=== PATIENT | female | born 1940 | race Caucasian/White ===

== ENCOUNTER 2021-09-16 13:58 | Outpatient (RCR) | payer MEDICARE, OTHER, SELFPAY ==
--- OUTSIDE RECORDS SUMMARY | 2021-09-11 09:07 | XMS_ITS | Continuity of Care Document ---
:1940 Author Care Team Providers Name Role Phone MD Ryan F Attending Physician MD Ryan F Primary Care Physician Allergies, Adverse Reactions, Alerts No known allergies Social History Smoking Status Unknown if ever smoked Additional Data Assigned Sex Female Medications Medication Status Dose Units Route Directions Qty Days Start End Ins tructions Date Date Acetaminophen Active 325-65 MG PO Every 4 100 0 Hours as needed Amlodipine Active 5 MG PO Daily 30 Besylate Apixaban Active 5 MG PO Twice A Day 60 (Eliquis) 5 Mg TAB Digoxin Active 125 MCG PO Daily 90 Furosemide Active 20 MG PO Daily 30 Gabapentin Active 300 MG PO Daily 90 Oxybutynin Active 10 MG PO Daily 30 Chloride (Oxybutynin Chloride Er) 10 Mg TAB Potassium Active 20 MEQ PO Daily 30 Chloride Simvastatin Active 20 MG PO Bedtime 30 Procedures Procedure Date Performed Status ASSAY OF MAGNESIUM August 18, 2021 completed ASSAY OF PHOSPHORUS August 18, 2021 completed METABOLIC PANEL TOTAL CA August 18, 2021 completed Relevant Diagnostic Tests and/or Laboratory Data Laboratory Results Test Date/Time Result Interpretation Reference Result Perfo rming Range Comment Site Random September 08, 122 60-115 [facility] Glucose 2021 11:32am 1999 No [facility] [address] Blood Urea September 08, 17 7-30 [facility] Nitrogen 2021 11:32am 1999 No [facility] [address] Creatinine September 08, 0.9 0.5-1.5 [facility] 2021 11:32am 1999 No [facility] [address] Estimated September 08, Patient [facility] Creatinine 2021 11:32am height/weig 1999 [facility] Clearance ht data not [facility] [id number] available Sodium Level September 08, 137 135-149 [facility] 2021 11:32am [facility] [address] Potassium September 08, 3.9 3.6-5.1 [facility] Level 2021 11:32am 1999 [facility] [address] Chloride September 08, 100 96-114 [facility] Level 2021 11:32am 1999 [facility] [address] Carbon September 08, 26 20-32 [facility] Dioxide Level 2021 11:32am 200 0 [facility] [address] Calcium Level September 08, 8.9 8.4-10.6 [facility] 2021 11:32am 1999 [facility] [address] Phosphorus August 18, 5.1 2.5-4.5 [facility] Level 2021 9:15am 1999 [facility] [address] Magnesium August 18, 1.6 1.5-2.6 [facility] Level 2021 9:15am 1999 [facility] [id number] Insurance Providers Guarantor Madie Morocho Address [address] [place] [address] [address] [place] [id number] Contact Info. Home Phone: Payer Policy Id Coverage Id Subscriber's Subscriber Id Effective E xpiration Name Date Date Medicare [id number] Madie Morocho Encounters Encounter Location(s) Arrival/Admit Date Discharge/Depart Date Provider(s) Registered [place] September 08, 2021 Edil Davis [facility] 12:05pm Buddy CASTILLO Registered [place] August 18, 2021 Ignacio [facility] 3:29pm Milagros Gonzalez DNP RN Plan of Treatment Future Tests Future scheduled test information is unavailable Pending Tests Pending diagnostic test information is unavailable Future Visits Future appointment information is unavailable Referrals to Other Providers Referral information is unavailable Future Procedures Future procedure information is unavailable Future Medications Future medication information is unavailable Patient Instructions Denosumab (By injection) (Prolia, Xgeva)
--- NOTE | 2021-09-14 16:20 | URNOTE ---
07/23/2021 note by Lexi Rodriguez: Request received from [facility] for prior authorization of Prolia [id number]. Patient carries Medicare as primary insurance. Per [email or web address] LCD [id number] no prior authorization is required for Prolia. Services are based on medical necessity and follows Medicare guidelines.
[2021-09-16 14:23] VITALS: BP 119/68; PULSE 58; RESP 95; TEMP 36.2; O2SAT 95
[2021-09-16] MEDS: DENOSUMAB 60 MG/ML SYRINGE SUBCUT (14:38)
== END 2021-09-17 23:59 | disposition home or self-care (01) ==
LOC: CCIC 13:58
PROVIDERS: PCP Nurse Practitioner Gerontology; Visit Provider Clinical Nurse Specialist
DX: M81.0 Age-related osteoporosis without current pathological fracture (principal)
CPT/HCPCS: 96374; J0897

== ENCOUNTER 2021-09-17 10:37 | Outpatient (CLI) | payer MEDICARE, OTHER, SELFPAY ==
--- NOTE | 2021-09-17 11:00 | CRLHL7_ITS ---
For Patients: As a result of the 21st Century Cures Act, medical imaging exams and procedure reports are released immediately into your electronic medical record. You may view this report before your referring provider. If you have questions, please contact your health care provider. Indication: Pulmonary nodule Technique: Noncontrast CT chest Comparison: CT chest 08/21/2020 Findings: Normal caliber thoracic aorta. Heart is mildly enlarged. Coronary artery calcification. No pericardial effusion. Calcified left hilar lymph nodes and mediastinal nodes. No pleural effusion. Mild emphysema. 3 millimeter subpleural left lower lobe pulmonary nodule series 3, image 57, unchanged. Right middle lobe lingular strandy atelectasis/scarring not significantly changed. No new nodules are seen. Left upper lobe granuloma. Right lower lobe bronchiectasis. Splenic granulomas. Low-attenuation lesion left kidney incompletely assessed cholecystectomy. No suspicious bony lesions. Impression: 1. 3 millimeter left lower lobe pulmonary nodule unchanged. No new nodules are seen. 2. Emphysema. [employer] GUID[employer]INES - SOLID NODULES: SINGLE LOW RISK - nodule less than 6 mm: No routine follow-up. - nodule 6-8 mm: CT at 6-12 months, then consider CT at 18-24 months. - nodule greater than 8 mm: Consider CT at 3 months, PET/CT or tissue sampling. SINGLE HIGH RISK - nodule less than 6 mm: Optional CT at 12 months. - nodule 6-8 mm: CT at 6-12 months, then CT at 18-24 months. - nodule greater than 8 mm: Consider CT at 3 months, PET/CT or tissue sampling. MULTIPLE LOW RISK - nodule less than 6 mm: No routine follow-up. - nodule 6-8 mm: CT at 3-6 months, then consider CT at 18-24 months. - nodule greater than 8 mm: CT at 3-6 months, then consider CT at 18-24 months. MULTIPLE HIGH RISK - nodule less than 6 mm: Optional CT at 12 months. - nodule 6-8 mm: CT at 3-6 months, then at 18-24 months. - nodule greater than 8 mm: CT at 3-6 months, then at 18-24 months. Please note that all CT scans at this facility use dose modulation, iterative reconstruction, and/or weight-based dosing when appropriate to reduce radiation dose to as low as reasonably achievable. Dictated by Krista Pritchett MD @ 09/17/2021 12:41:08 PM (Electronically Signed)
== END 2021-09-17 10:38 | disposition home or self-care (01) ==
PROVIDERS: PCP Nurse Practitioner Gerontology; Visit Provider Family Medicine
DX: R91.1 Solitary pulmonary nodule (principal); J43.9 Emphysema, unspecified
CPT/HCPCS: 71250

== ENCOUNTER 2021-09-23 19:05 | Outpatient (CLI) | payer MEDICARE, OTHER, SELFPAY | END 2021-09-23 19:06 | disposition home or self-care (01) | LOC: AMB 10-01 12:38 | PROVIDERS: PCP Family Medicine; Visit Provider Family Medicine | DX: R53.81 Other malaise (principal) | CPT/HCPCS: A0425; A0427 ==

== ENCOUNTER 2021-09-23 19:22 | Inpatient (IN) | payer MEDICARE, OTHER, SELFPAY ==
[2021-09-23 19:29] VITALS: BP 114/91; PULSE 66; RESP 18; TEMP 36.1; O2SAT 95; BMI 27.9
--- NOTE | 2021-09-23 19:54 | ED.GENADULT ---
HPI - General Adult General Time Seen by Provider: 19:55 Date Seen: 09/23/21 Chief complaint: Dizziness/Vertigo Stated complaint: LOW HEMOGLOBIN Time Seen by Provider: 09/23/21 19:53 Source: patient and family History of Present Illness HPI narrative: Carlita Santos is a 72-year-old female past medical history includes COPD, osteoporosis, pulmonary embolism not on anticoagulant, hyperlipidemia presents emerged department by EMS with a low hemoglobin. According to patient and family, she was recently moved into an assisted living apartment, over the last month she is declining mobility. She does use a walker, the last few days she has had increased confusion and weakness, she was seen in clinic, urinalysis was obtained as well as some blood work, hemoglobin came back low at 5.5. Testing her for UTI, short-term memory issues. She was notified and brought to the emergency department. Patient denies any, headache, shortness of breath or chest pain, she does look more pale over the last few days. She denies any in the urine or blood in the stool. No history of any malignancy. Related Data Home Medications Medication Instructions Recorded Confirmed acetaminophen 325 mg tablet 325 mg PO Q4-6H PRN 09/14/21 09/14/21 amlodipine 5 mg tablet 5 mg PO DAILY 09/14/21 09/23/21 apixaban 5 mg tablet (Eliquis) 5 mg PO BID 09/14/21 09/23/21 digoxin 125 mcg (0.125 mg) tablet 125 mcg PO DAILY 09/14/21 09/23/21 furosemide 20 mg tablet 20 mg PO DAILY 09/14/21 09/23/21 gabapentin 300 mg capsule 300 mg PO DAILY 09/14/21 09/23/21 oxybutynin chloride 10 mg 10 mg PO DAILY 09/14/21 09/23/21 tablet,extended release 24 hr potassium chloride 20 mEq 20 meq PO DAILY 09/14/21 09/23/21 tablet,extended release(part/cryst) simvastatin 20 mg tablet 20 mg PO HS 09/14/21 09/23/21 Allergies Allergy/AdvReac Type Severity Reaction Status Date / Time No Known Drug Allergies Allergy Verified 09/16/21 14:34 Review of Systems Status of ROS: Reports: 10 or more systems reviewed and unremarkable except as noted in History and below [facility] Medical History (Updated 09/23/21 @ 20:01 by Shandra Malhotra RN) Age related osteoporosis Alcohol dependence in remission Emphysema lung Essential (primary) hypertension Fracture of shaft of right fibula Heart failure, unspecified Hyperlipidemia Major depressive disorder Nonrheumatic mitral (valve) insufficiency Nonrheumatic tricuspid (valve) insufficiency Osteoarthritis Personal history of pulmonary embolism Polyneuropathy Pulmonary embolism without acute cor pulmonale Weakness Social History Smoking Status: Never smoker How often do you have a drink containing alcohol: never AUDIT-C Alcohol total score: 0 Non-prescribed substance use: denies use Exam Const: Vital Signs, click to edit/add: Vital Signs - 24 hr 09/23/21 19:29 09/23/21 20:36 Temperature 97.0 F L Pulse Rate [Left B rachial] 66 65 Respiratory Rate 18 14 Blood Pressure [Ri ght Upper Arm] 114/91 H 126/62 Pulse Oximetry 95 90 Common normals: no apparent distress and oriented x3 General appearance: cooperative, comfortable and well developed Orientation/consciousness: Yes awake, Yes oriented to person, Yes oriented to place and Yes oriented to time HENMT: Common normals: normocephalic and TM's normal bilaterally Head and scalp: normal to inspection and normocephalic Face and sinus: normal facial exam Tympanic membrane: TM's normal bilaterally Mouth: oral and palatal mucosa normal Eye: Common normals: PERRL, EOMs intact bilaterally and conjunctivae normal General eye: normal appearance of both eyes Visual acuity: acuity normal Alignment: alignment normal Conjunctiva: conjunctiva(e) normal Pupil: PERRL Neck & C-Spine: Common normals: full ROM, no lymphadenopathy and supple Lymph: Lymphatic: no lymphadenopathy noted Chest: Common normals: inspection of chest normal Resp: Common normals: normal respiratory effort and clear to auscultation bilaterally Auscultation: clear to auscultation bilaterally Cardio: Common normals: regular rate, regular rhythm, S1 normal heart sound and S2 normal heart sound Rate: regular rate Rhythm: regular rhythm Heart sounds: S1 normal and S2 normal GI: Common normals: Normal to inspection, nondistended, normoactive bowel sounds present and soft to palpation Palpation: soft : Other: Normal rectal exam: no gross blood per rectum. No hemorrhoids. Back & Pelvis: Common normals: no thoracic nor lumbar tenderness Extremity: Common normals: normal to inspection, full ROM and normal capillary refill Neuro: Common normals: oriented x3 and CN's II-XII intact bilaterally Sensorium/orientation: awake, oriented to person, oriented to place and oriented to time Other: Baseline according to family. Skin: Narrative: Pale in appearance. Course Course Hospital Course: 8:00 PM: AIDET performed. vitals are stable. Workup will include IV propofol, 125 cc/hr maintenance fluid, will obtain type and screen, CBC, CMP, urinalysis, sars-Cov-2 PCR and Hemoccult. Patient and family were in agreement this plan, likely admit for blood transfusion and further evaluation workup. Reevaluation(s) Reevaluation #1: Hemoccult negative. Patient family updated on hemoglobin results, hemoglobin 6.2 differential looks like iron deficiency, no signs of active bleeding, vitals are stable, plan to order 1 RBC unit to give prior to admission, metabolic panel within normal limits. Time: 20:20 Reevaluation #2: Call made to Dr. Wells, Hospitalist dental receptionist, she accepts care of the patient to a [facility] surgery bed, patient and family in agreement. Time: 21:05 Vital Signs Vital signs: Initial Vital Signs Temperature 97.0 F L 09/23/21 19:29 Temperature Source Temporal Artery Scan 09/23/21 19:29 Pulse Rate 66 09/23/21 19:29 Pulse Rhythm 09/23/21 19:29 Pulse Strength 3+ Normal 09/23/21 19:29 Respiratory Rate 18 09/23/21 19:29 Blood Pressure 114/91 H 09/23/21 19:29 Blood Pressure Mean 98 09/23/21 19:29 Blood Pressure Position Sitting 09/23/21 19:29 Pulse Oximetry 95 09/23/21 19:29 Oxygen Delivery Method 09/23/21 19:29 Vital Signs Temperature 97.0 F L 09/23/21 19:29 Pulse Rate 66 09/23/21 19:29 Respiratory Rate 18 09/23/21 19:29 Blood Pressure 114/91 H 09/23/21 19:29 Pulse Oximetry 95 09/23/21 19:29 Temperature 97.0 F L 09/23/21 19:29 Pulse Rate 65 09/23/21 20:36 Respiratory Rate 14 09/23/21 20:36 Blood Pressure 126/62 09/23/21 20:36 Pulse Oximetry 90 09/23/21 20:36 Medical Decision Making Lab Data Labs: Lab Results 09/23/21 09/23/21 Range/Units 20:25 20:25 WBC 9.70 (4.50-11.00) K/uL RBC 3.15 L (4.00-5.20) m/uL Hgb 6.2 L* (12.0-16.0) gm/dL Hct 23.6 L (33.0-51.0) % MCV 75 L (80-100) fL MCH 20 L (26-34) pg MCHC 26 L (32-36) gm/dL RDW Coeff of Anaya 28.2 H (11.5-15.5) % Plt Count 597 H (140-440) K/uL Neut % (Auto) 81.3 H (42.0-72.0) % Lymph % (Auto) 10.5 L (20-44) % Mathews % (Auto) 6.6 (0.0-11.0) % Eos % (Auto) 0.9 (0.0-7.0) % Baso % (Auto) 0.4 (0.0-3.0) % Neut # (Auto) 7.90 H (1.7-7.0) K/uL Lymph # (Auto) 1.00 (0.90-2.90) K/uL Mathews # (Auto) 0.60 (0.00-0.90) K/UL Eos # (Auto) 0.09 (0.00-0.50) K/uL Baso # (Auto) 0.04 (0.00-0.30) K/uL Abs Immat Gran (auto) 0.03 (0.00-0.30) K/uL Sodium 135 (135-149) mmol/L Potassium 3.5 L (3.6-5.1) mmol/L Chloride 103 (96-114) mmol/L Carbon Dioxide 23 (20-32) mmol/L BUN 22 (7-30) mg/dL Creatinine 0.8 (0.5-1.5) mg/dL Estimated Creat Clear 45.09 Glucose 122 H (60-115) mg/dL Calcium 7.2 L (8.4-10.6) mg/dL Total Bilirubin 0.8 (0.1-1.5) mg/dL AST 26 (12-35) U/L ALT 11 (4-35) U/L Alkaline Phosphatase 90 (40-150) U/L Total Protein 5.8 L (6.0-8.3) g/dL Albumin 3.3 (3.3-5.0) g/dL Discharge Plan Discharge Prescriptions: No Action acetaminophen 325 mg tablet 325 mg PO Q4-6H PRN0RF Rx Instructions: 325-650mg po q4-6 hrs prn amlodipine 5 mg tablet 5 mg PO DAILY 0RF Eliquis 5 mg tablet 5 mg PO BID 0RF digoxin 125 mcg (0.125 mg) tablet 125 mcg PO DAILY 0RF furosemide 20 mg tablet 20 mg PO DAILY 0RF gabapentin 300 mg capsule 300 mg PO DAILY 0RF oxybutynin chloride 10 mg tablet extended release 24 hr 10 mg PO DAILY 0RF potassium chloride 20 mEq tablet,ER particles/crystals 20 meq PO DAILY 0RF simvastatin 20 mg tablet 20 mg PO HS 0RF Follow Up/Referrals: Macho Davis MD [Primary Care Provider] -
[2021-09-23] MEDS: 0.9 % SODIUM CHLORIDE 1000 ml 1,000 ML 125 ML IV (20:29)
[2021-09-23 20:34] LABS: Basophils Absolute Auto 0.04 K/uL (0.00-0.30); Basophils Percent Auto 0.4 % (0.0-3.0); Eosinophils Absolute Auto 0.09 K/uL (0.00-0.50); Eosinophils Percent Auto 0.9 % (0.0-7.0); Hematocrit 23.6 % (33.0-51.0); Immature Granulocytes Abs Auto 0.03 K/uL (0.00-0.30); Lymphocytes Percent Auto 10.5 % (20-44); Mean Corpuscular HGB Conc 26 gm/dL (32-36); Mean Corpuscular Hemoglobin 20 pg (26-34); Mean Corpuscular Volume 75 fL (80-100); Monocytes Percent Auto 6.6 % (0.0-11.0); Neutrophils Percent Auto 81.3 % (42.0-72.0); Platelet Count* 597 K/uL (140-440); RDW Coefficient of Variation % 28.2 % (11.5-15.5); Red Blood Count 3.15 m/uL (4.00-5.20)
[2021-09-23 20:36] VITALS: BP 126/62; PULSE 65; RESP 14; O2SAT 90
--- NOTE | 2021-09-23 20:39 | ED.NURSE ---
critical lab: hemoglobin 6.2. notified.
[2021-09-23 20:40] LABS: Hemoglobin* 6.2 gm/dL (12.0-16.0)
[2021-09-23 20:49] LABS: Albumin* 3.3 g/dL (3.3-5.0); Chloride* 103 mmol/L (96-114); Potassium* 3.5 mmol/L (3.6-5.1); Sodium* 135 mmol/L (135-149)
[2021-09-23 20:51] LABS: Creatinine* 0.8 mg/dL (0.5-1.5); Est. Creatinine Clearance* 45.09; Estimated Glomerular Filt Rate 75.37
[2021-09-23 20:52] LABS: Alanine Aminotransferase* 11 U/L (4-35); Alkaline Phosphatase* 90 U/L (40-150); Aspartate Amino Transferase* 26 U/L (12-35); Bilirubin Total* 0.8 mg/dL (0.1-1.5); Blood Urea Nitrogen* 22 mg/dL (7-30); Carbon Dioxide* 23 mmol/L (20-32); Glucose* 122 mg/dL (60-115); Total Protein* 5.8 g/dL (6.0-8.3)
[2021-09-23 20:53] LABS: Calcium* 7.2 mg/dL (8.4-10.6)
[2021-09-23 21:00] VITALS: BP 132/57; PULSE 66; RESP 18; O2SAT 98
--- NOTE | 2021-09-23 21:06 | ED.NURSE ---
VSS at this time. Endorses some dizziness, HOB adjusted and lights dimmed. Denies further needs at this time. Call light within reach. Report given to ARCHIE rCews.
--- NOTE | 2021-09-23 21:10 | ED.GENADULT ---
HPI - General Adult General Chief complaint: Dizziness/Vertigo Stated complaint: LOW HEMOGLOBIN Time Seen by Provider: 09/23/21 19:53 Source: patient and family Related Data Home Medications Medication Instructions Recorded Confirmed acetaminophen 325 mg tablet 325 mg PO Q4-6H PRN 09/14/21 09/14/21 amlodipine 5 mg tablet 5 mg PO DAILY 09/14/21 09/23/21 apixaban 5 mg tablet (Eliquis) 5 mg PO BID 09/14/21 09/23/21 digoxin 125 mcg (0.125 mg) tablet 125 mcg PO DAILY 09/14/21 09/23/21 furosemide 20 mg tablet 20 mg PO DAILY 09/14/21 09/23/21 gabapentin 300 mg capsule 300 mg PO DAILY 09/14/21 09/23/21 oxybutynin chloride 10 mg 10 mg PO DAILY 09/14/21 09/23/21 tablet,extended release 24 hr potassium chloride 20 mEq 20 meq PO DAILY 09/14/21 09/23/21 tablet,extended release(part/cryst) simvastatin 20 mg tablet 20 mg PO HS 09/14/21 09/23/21 Allergies Allergy/AdvReac Type Severity Reaction Status Date / Time No Known Drug Allergies Allergy Verified 09/16/21 14:34 [facility] Medical History (Updated 09/23/21 @ 20:01 by Shandra Malhotra RN) Age related osteoporosis Alcohol dependence in remission Emphysema lung Essential (primary) hypertension Fracture of shaft of right fibula Heart failure, unspecified Hyperlipidemia Major depressive disorder Nonrheumatic mitral (valve) insufficiency Nonrheumatic tricuspid (valve) insufficiency Osteoarthritis Personal history of pulmonary embolism Polyneuropathy Pulmonary embolism without acute cor pulmonale Weakness Social History Smoking Status: Never smoker How often do you have a drink containing alcohol: never AUDIT-C Alcohol total score: 0 Non-prescribed substance use: denies use Exam Const: Vital Signs, click to edit/add: Vital Signs - 24 hr 09/23/21 19:29 09/23/21 20:36 Temperature 97.0 F L Pulse Rate [Left B rachial] 66 65 Respiratory Rate 18 14 Blood Pressure [Ri ght Upper Arm] 114/91 H 126/62 Pulse Oximetry 95 90 Course Course Hospital Course: 8:00 PM: AIDET performed. vitals are stable. Workup will include IV propofol, 125 cc/hr maintenance fluid, will obtain type and screen, CBC, CMP, urinalysis, sars-Cov-2 PCR and Hemoccult. Patient and family were in agreement this plan, likely admit for blood transfusion and further evaluation workup. Vital Signs Vital signs: Initial Vital Signs Temperature 97.0 F L 09/23/21 19:29 Temperature Source Temporal Artery Scan 09/23/21 19:29 Pulse Rate 66 09/23/21 19:29 Pulse Rhythm 09/23/21 19:29 Pulse Strength 3+ Normal 09/23/21 19:29 Respiratory Rate 18 09/23/21 19:29 Blood Pressure 114/91 H 09/23/21 19:29 Blood Pressure Mean 98 09/23/21 19:29 Blood Pressure Position Sitting 09/23/21 19:29 Pulse Oximetry 95 09/23/21 19:29 Oxygen Delivery Method 09/23/21 19:29 Vital Signs Temperature 97.0 F L 09/23/21 19:29 Pulse Rate 66 09/23/21 19:29 Respiratory Rate 18 09/23/21 19:29 Blood Pressure 114/91 H 09/23/21 19:29 Pulse Oximetry 95 09/23/21 19:29 Temperature 97.0 F L 09/23/21 19:29 Pulse Rate 65 09/23/21 20:36 Respiratory Rate 14 09/23/21 20:36 Blood Pressure 126/62 09/23/21 20:36 Pulse Oximetry 90 09/23/21 20:36 Medical Decision Making Lab Data Labs: Lab Results 09/23/21 09/23/21 Range/Units 20:25 20:25 WBC 9.70 (4.50-11.00) K/uL RBC 3.15 L (4.00-5.20) m/uL Hgb 6.2 L* (12.0-16.0) gm/dL Hct 23.6 L (33.0-51.0) % MCV 75 L (80-100) fL MCH 20 L (26-34) pg MCHC 26 L (32-36) gm/dL RDW Coeff of Anaya 28.2 H (11.5-15.5) % Plt Count 597 H (140-440) K/uL Neut % (Auto) 81.3 H (42.0-72.0) % Lymph % (Auto) 10.5 L (20-44) % Frontier % (Auto) 6.6 (0.0-11.0) % Eos % (Auto) 0.9 (0.0-7.0) % Baso % (Auto) 0.4 (0.0-3.0) % Neut # (Auto) 7.90 H (1.7-7.0) K/uL Lymph # (Auto) 1.00 (0.90-2.90) K/uL Frontier # (Auto) 0.60 (0.00-0.90) K/UL Eos # (Auto) 0.09 (0.00-0.50) K/uL Baso # (Auto) 0.04 (0.00-0.30) K/uL Abs Immat Gran (auto) 0.03 (0.00-0.30) K/uL Sodium 135 (135-149) mmol/L Potassium 3.5 L (3.6-5.1) mmol/L Chloride 103 (96-114) mmol/L Carbon Dioxide 23 (20-32) mmol/L BUN 22 (7-30) mg/dL Creatinine 0.8 (0.5-1.5) mg/dL Estimated Creat Clear 45.09 Glucose 122 H (60-115) mg/dL Calcium 7.2 L (8.4-10.6) mg/dL Total Bilirubin 0.8 (0.1-1.5) mg/dL AST 26 (12-35) U/L ALT 11 (4-35) U/L Alkaline Phosphatase 90 (40-150) U/L Total Protein 5.8 L (6.0-8.3) g/dL Albumin 3.3 (3.3-5.0) g/dL Discharge Plan Discharge Prescriptions: No Action acetaminophen 325 mg tablet 325 mg PO Q4-6H PRN0RF Rx Instructions: 325-650mg po q4-6 hrs prn amlodipine 5 mg tablet 5 mg PO DAILY 0RF Eliquis 5 mg tablet 5 mg PO BID 0RF digoxin 125 mcg (0.125 mg) tablet 125 mcg PO DAILY 0RF furosemide 20 mg tablet 20 mg PO DAILY 0RF gabapentin 300 mg capsule 300 mg PO DAILY 0RF oxybutynin chloride 10 mg tablet extended release 24 hr 10 mg PO DAILY 0RF potassium chloride 20 mEq tablet,ER particles/crystals 20 meq PO DAILY 0RF simvastatin 20 mg tablet 20 mg PO HS 0RF Follow Up/Referrals: Macho Davis MD [Primary Care Provider] -
--- NOTE | 2021-09-23 21:14 | ED.GENADULT ---
HPI - General Adult General Chief complaint: Dizziness/Vertigo Stated complaint: LOW HEMOGLOBIN Time Seen by Provider: 09/23/21 19:53 Source: patient and family Related Data Home Medications Medication Instructions Recorded Confirmed acetaminophen 325 mg tablet 325 - 650 mg PO Q4-6H PRN 09/14/21 09/24/21 amlodipine 5 mg tablet 5 mg PO DAILY 09/14/21 09/23/21 apixaban 5 mg tablet (Eliquis) 5 mg PO BID 09/14/21 09/23/21 digoxin 125 mcg (0.125 mg) tablet 125 mcg PO DAILY 09/14/21 09/23/21 furosemide 20 mg tablet 20 mg PO DAILY 09/14/21 09/23/21 gabapentin 300 mg capsule 300 mg PO BID 09/14/21 09/24/21 potassium chloride 20 mEq 20 meq PO DAILY 09/14/21 09/23/21 tablet,extended release(part/cryst) simvastatin 20 mg tablet 20 mg PO HS 09/14/21 09/23/21 oxybutynin chloride 15 mg 15 mg PO DAILY 09/24/21 09/24/21 tablet,extended release 24 hr Allergies Allergy/AdvReac Type Severity Reaction Status Date / Time No Known Drug Allergies Allergy Verified 09/16/21 14:34 [facility] Medical History (Updated 10/21/21 @ 09:52 by VITALIY Jameson) Age related osteoporosis Alcohol dependence in remission Congestive heart failure Emphysema lung Essential (primary) hypertension Fracture of shaft of right fibula Heart failure, unspecified Hyperlipidemia Iron deficiency anemia Major depressive disorder Nonrheumatic mitral (valve) insufficiency Nonrheumatic tricuspid (valve) insufficiency Osteoarthritis Personal history of pulmonary embolism POLST (Physician Orders for Life-Sustaining Treatment) Polyneuropathy Pulmonary embolism without acute cor pulmonale Social History (Updated 09/24/21 @ 17:05 by Abigail Matos MD) Narrative: Patient lives in assisted living in [facility]. She does not smoke or drink alcohol. She has a daughter who lives nearby and is involved in her care. Highest level of school completed/degree received: some college, no degree Smoking Status: Former smoker Do you use any of these nicotine containing products: None Second hand tobacco smoke exposure: No How often do you have a drink containing alcohol: never AUDIT-C Alcohol total score: 0 Non-prescribed substance use: denies use Caffeine: Yes (coffee(x1) and ice tea(x3) daily) service: No Exam Const: Vital Signs, click to edit/add: Vital Signs - 24 hr 09/23/21 19:29 09/23/21 20:36 Temperature 97.0 F L Pulse Rate [Left B rachial] 66 65 Respiratory Rate 18 14 Blood Pressure [Ri ght Upper Arm] 114/91 H 126/62 Pulse Oximetry 95 90 Course Course Hospital Course: 8:00 PM: AIDET performed. vitals are stable. Workup will include IV propofol, 125 cc/hr maintenance fluid, will obtain type and screen, CBC, CMP, urinalysis, sars-Cov-2 PCR and Hemoccult. Patient and family were in agreement this plan, likely admit for blood transfusion and further evaluation workup. Vital Signs Vital signs: Initial Vital Signs Temperature 97.0 F L 09/23/21 19:29 Temperature Source Temporal Artery Scan 09/23/21 19:29 Pulse Rate 66 09/23/21 19:29 Pulse Rhythm 09/23/21 19:29 Pulse Strength 3+ Normal 09/23/21 19:29 Respiratory Rate 18 09/23/21 19:29 Blood Pressure 114/91 H 09/23/21 19:29 Blood Pressure Mean 98 09/23/21 19:29 Blood Pressure Position Sitting 09/23/21 19:29 Pulse Oximetry 95 09/23/21 19:29 Oxygen Delivery Method 09/23/21 19:29 Vital Signs Temperature 97.0 F L 09/23/21 19:29 Pulse Rate 66 09/23/21 19:29 Respiratory Rate 18 09/23/21 19:29 Blood Pressure 114/91 H 09/23/21 19:29 Pulse Oximetry 95 09/23/21 19:29 Oxygen Delivery Method 09/23/21 19:29 Temperature 96.9 F L 09/25/21 12:15 Pulse Rate 59 L 09/25/21 13:00 Respiratory Rate 18 09/25/21 13:00 Blood Pressure 145/74 H 09/25/21 13:00 Pulse Oximetry 94 09/25/21 13:00 Oxygen Delivery Method 09/25/21 13:00 Oxygen Flow Rate 1 09/24/21 07:43 Medical Decision Making Lab Data Labs: Lab Results 09/23/21 09/23/21 09/23/21 Range/Units 20:24 20:25 20:25 WBC 9.70 (4.50-11.00) K/uL RBC 3.15 L (4.00-5.20) m/uL Hgb 6.2 L* (12.0-16.0) gm/dL Hct 23.6 L (33.0-51.0) % MCV 75 L (80-100) fL MCH 20 L (26-34) pg MCHC 26 L (32-36) gm/dL RDW Coeff of Anaya 28.2 H (11.5-15.5) % Plt Count 597 H (140-440) K/uL Neut % (Auto) 81.3 H (42.0-72.0) % Lymph % (Auto) 10.5 L (20-44) % Harding % (Auto) 6.6 (0.0-11.0) % Eos % (Auto) 0.9 (0.0-7.0) % Baso % (Auto) 0.4 (0.0-3.0) % Neut # (Auto) 7.90 H (1.7-7.0) K/uL Lymph # (Auto) 1.00 (0.90-2.90) K/uL Harding # (Auto) 0.60 (0.00-0.90) K/UL Eos # (Auto) 0.09 (0.00-0.50) K/uL Baso # (Auto) 0.04 (0.00-0.30) K/uL Abs Immat Gran (auto) 0.03 (0.00-0.30) K/uL Sodium 135 (135-149) mmol/L Potassium 3.5 L (3.6-5.1) mmol/L Chloride 103 (96-114) mmol/L Carbon Dioxide 23 (20-32) mmol/L BUN 22 (7-30) mg/dL Creatinine 0.8 (0.5-1.5) mg/dL Estimated Creat Clear 45.09 Glucose 122 H (60-115) mg/dL Haptoglobin (30-200) mg/dL Calcium 7.2 L (8.4-10.6) mg/dL Iron (37-170) ug/dL TIBC (265-497) ug/dL % Saturation (20-50) % [id number], Serum (200-360) mg/dL Total Bilirubin 0.8 (0.1-1.5) mg/dL Direct Bilirubin (0.0-0.5) mg/dL AST 26 (12-35) U/L ALT 11 (4-35) U/L Alkaline Phosphatase 90 (40-150) U/L Lactate Dehydrogenase (313-618) U/L Total Protein 5.8 L (6.0-8.3) g/dL Albumin 3.3 (3.3-5.0) g/dL TSH (0.270-4.20) uIU/mL SARS-CoV-2 (PCR) Negative SARS-CoV-2 (Negative) Blood Type Antibody Screen Crossmatch ([facility]) 09/23/21 09/23/21 09/23/21 Range/Units 20:25 20:25 20:25 WBC (4.50-11.00) K/uL RBC (4.00-5.20) m/uL Hgb (12.0-16.0) gm/dL Hct (33.0-51.0) % MCV (80-100) fL MCH (26-34) pg MCHC (32-36) gm/dL RDW Coeff of Anaya (11.5-15.5) % Plt Count (140-440) K/uL Neut % (Auto) (42.0-72.0) % Lymph % (Auto) (20-44) % Harding % (Auto) (0.0-11.0) % Eos % (Auto) (0.0-7.0) % Baso % (Auto) (0.0-3.0) % Neut # (Auto) (1.7-7.0) K/uL Lymph # (Auto) (0.90-2.90) K/uL Harding # (Auto) (0.00-0.90) K/UL Eos # (Auto) (0.00-0.50) K/uL Baso # (Auto) (0.00-0.30) K/uL Abs Immat Gran (auto) (0.00-0.30) K/uL Sodium (135-149) mmol/L Potassium (3.6-5.1) mmol/L Chloride (96-114) mmol/L Carbon Dioxide (20-32) mmol/L BUN (7-30) mg/dL Creatinine (0.5-1.5) mg/dL Estimated Creat Clear Glucose (60-115) mg/dL Haptoglobin (30-200) mg/dL Calcium (8.4-10.6) mg/dL Iron 17 L (37-170) ug/dL TIBC 430 (265-497) ug/dL % Saturation 4 L (20-50) % Pokn-4-Aelmtrlhztr, Serum (200-360) mg/dL Total Bilirubin 0.7 (0.1-1.5) mg/dL Direct Bilirubin 0.4 (0.0-0.5) mg/dL AST 49 H (12-35) U/L ALT 11 (4-35) U/L Alkaline Phosphatase 89 (40-150) U/L Lactate Dehydrogenase 763 H (313-618) U/L Total Protein 5.8 L (6.0-8.3) g/dL Albumin 3.3 (3.3-5.0) g/dL TSH (0.270-4.20) uIU/mL SARS-CoV-2 (PCR) (Negative) Blood Type A Positive Antibody Screen NEGATIVE Crossmatch ([facility]) See Detail 09/23/21 09/23/21 09/24/21 Range/Units 20:25 20:25 06:19 WBC 7.74 (4.50-11.00) K/uL RBC 3.74 L (4.00-5.20) m/uL Hgb 8.1 L (12.0-16.0) gm/dL Hct 29.0 L (33.0-51.0) % MCV 78 L (80-100) fL MCH 22 L (26-34) pg MCHC 28 L (32-36) gm/dL RDW Coeff of Anaya 25.6 H (11.5-15.5) % Plt Count 604 H (140-440) K/uL Neut % (Auto) 79.0 H (42.0-72.0) % Lymph % (Auto) 11.0 L (20-44) % Harding % (Auto) 6.8 (0.0-11.0) % Eos % (Auto) 2.3 (0.0-7.0) % Baso % (Auto) 0.4 (0.0-3.0) % Neut # (Auto) 6.10 (1.7-7.0) K/uL Lymph # (Auto) 0.90 (0.90-2.90) K/uL Harding # (Auto) 0.50 (0.00-0.90) K/UL Eos # (Auto) 0.18 (0.00-0.50) K/uL Baso # (Auto) 0.03 (0.00-0.30) K/uL Abs Immat Gran (auto) 0.04 (0.00-0.30) K/uL Sodium (135-149) mmol/L Potassium (3.6-5.1) mmol/L Chloride (96-114) mmol/L Carbon Dioxide (20-32) mmol/L BUN (7-30) mg/dL Creatinine (0.5-1.5) mg/dL Estimated Creat Clear Glucose (60-115) mg/dL Haptoglobin 191 (30-200) mg/dL Calcium (8.4-10.6) mg/dL Iron (37-170) ug/dL TIBC (265-497) ug/dL % Saturation (20-50) % Ifbg-1-Zedxdyjgfpl, Serum 291 (200-360) mg/dL Total Bilirubin (0.1-1.5) mg/dL Direct Bilirubin (0.0-0.5) mg/dL AST (12-35) U/L ALT (4-35) U/L Alkaline Phosphatase (40-150) U/L Lactate Dehydrogenase (313-618) U/L Total Protein (6.0-8.3) g/dL Albumin (3.3-5.0) g/dL TSH 2.880 (0.270-4.20) uIU/mL SARS-CoV-2 (PCR) (Negative) Blood Type Antibody Screen Crossmatch ([facility]) 09/24/21 Range/Units 06:19 WBC (4.50-11.00) K/uL RBC (4.00-5.20) m/uL Hgb (12.0-16.0) gm/dL Hct (33.0-51.0) % MCV (80-100) fL MCH (26-34) pg MCHC (32-36) gm/dL RDW Coeff of Anaya (11.5-15.5) % Plt Count (140-440) K/uL Neut % (Auto) (42.0-72.0) % Lymph % (Auto) (20-44) % Harding % (Auto) (0.0-11.0) % Eos % (Auto) (0.0-7.0) % Baso % (Auto) (0.0-3.0) % Neut # (Auto) (1.7-7.0) K/uL Lymph # (Auto) (0.90-2.90) K/uL Harding # (Auto) (0.00-0.90) K/UL Eos # (Auto) (0.00-0.50) K/uL Baso # (Auto) (0.00-0.30) K/uL Abs Immat Gran (auto) (0.00-0.30) K/uL Sodium 138 (135-149) mmol/L Potassium 3.2 L (3.6-5.1) mmol/L Chloride 106 (96-114) mmol/L Carbon Dioxide 25 (20-32) mmol/L BUN 19 (7-30) mg/dL Creatinine 0.8 (0.5-1.5) mg/dL Estimated Creat Clear 45.09 Glucose 105 (60-115) mg/dL Haptoglobin (30-200) mg/dL Calcium 6.9 L (8.4-10.6) mg/dL Iron (37-170) ug/dL TIBC (265-497) ug/dL % Saturation (20-50) % Tytk-9-Nrtwnjxompv, Serum (200-360) mg/dL Total Bilirubin (0.1-1.5) mg/dL Direct Bilirubin (0.0-0.5) mg/dL AST (12-35) U/L ALT (4-35) U/L Alkaline Phosphatase (40-150) U/L Lactate Dehydrogenase (313-618) U/L Total Protein (6.0-8.3) g/dL Albumin (3.3-5.0) g/dL TSH (0.270-4.20) uIU/mL SARS-CoV-2 (PCR) (Negative) Blood Type Antibody Screen Crossmatch ([facility]) Discharge Plan Discharge Condition: Improved Activity Level: Activity as Tolerated Discharge Diet: Regular Prescriptions: Continued acetaminophen 325 mg tablet 325 - 650 mg PO Q4-6H PRN Rx Instructions: 325-650mg po q4-6 hrs prn amlodipine 5 mg tablet 5 mg PO DAILY Eliquis 5 mg tablet 5 mg PO BID digoxin 125 mcg (0.125 mg) tablet 125 mcg PO DAILY furosemide 20 mg tablet 20 mg PO DAILY gabapentin 300 mg capsule 300 mg PO BID potassium chloride 20 mEq tablet,ER particles/crystals 20 meq PO DAILY simvastatin 20 mg tablet 20 mg PO HS oxybutynin chloride 15 mg tablet extended release 24hr 15 mg PO DAILY Discontinued naproxen sodium [Aleve] 220 mg capsule 220 mg PO BID PRN Follow Up/Referrals: Macho Davsi MD [Primary Care Provider] -
--- NOTE | 2021-09-23 21:40 | PM.IMHP1 ---
Hospitalist- H&P: HPI History of Present Illness Time Seen by Provider: 22:01 Date Seen: 09/23/21 Chief complaint: LOW HEMOGLOBIN Narrative: Carlita Morocho is a 80 year old female presenting from clinic for evaluation of anemia and fatigue. The patient has PMhx of PE (on eliquis), CHF, COPD. She endorses fatigue, dizziness, and generalized weakness. She denies chest pain and SOB. Her hgb in the ED was 6.2. She denies melena, hematochezia, hematemesis. She denies fever, increased urinary frequency. She denies abdominal pain. She was started on IVF and 1 unit of pRBC was ordered. Review of Systems Status of ROS: Reports: 10 or more systems reviewed and unremarkable except as noted in History and below Const: Reports: fatigue Endo: Reports: fatigue PFSH [facility] Medical History (Updated 09/23/21 @ 23:29 by Geovani Wells MD) Age related osteoporosis Alcohol dependence in remission Emphysema lung Essential (primary) hypertension Fracture of shaft of right fibula Heart failure, unspecified Hyperlipidemia Major depressive disorder Nonrheumatic mitral (valve) insufficiency Nonrheumatic tricuspid (valve) insufficiency Osteoarthritis Personal history of pulmonary embolism Polyneuropathy Pulmonary embolism without acute cor pulmonale Weakness Social History Highest level of school completed/degree received: some college, no degree Smoking Status: Former smoker Do you use any of these nicotine containing products: None Second hand tobacco smoke exposure: No How often do you have a drink containing alcohol: never AUDIT-C Alcohol total score: 0 Non-prescribed substance use: denies use Caffeine: Yes (coffee(x1) and ice tea(x3) daily) service: No Meds Home Medications and Allergies Home Medications Medication Instructions Recorded Confirmed Type acetaminophen 325 mg tablet 325 mg PO Q4-6H PRN 09/14/21 09/14/21 History amlodipine 5 mg tablet 5 mg PO DAILY 09/14/21 09/23/21 History apixaban 5 mg tablet (Eliquis) 5 mg PO BID 09/14/21 09/23/21 History digoxin 125 mcg (0.125 mg) tablet 125 mcg PO DAILY 09/14/21 09/23/21 History furosemide 20 mg tablet 20 mg PO DAILY 09/14/21 09/23/21 History gabapentin 300 mg capsule 300 mg PO DAILY 09/14/21 09/23/21 History oxybutynin chloride 10 mg 10 mg PO DAILY 09/14/21 09/23/21 History tablet,extended release 24 hr potassium chloride 20 mEq 20 meq PO DAILY 09/14/21 09/23/21 History tablet,extended release(part/cryst) simvastatin 20 mg tablet 20 mg PO HS 09/14/21 09/23/21 History Allergies Allergy/AdvReac Type Severity Reaction Status Date / Time No Known Drug Allergies Allergy Verified 09/16/21 14:34 Exam Narrative: Exam Narrative: Gen: no acute distress HEENT: NCAT EOMI MMM Neck: Supple CV: RRR normal s1 s2 Lungs: CTAB Abd: Soft, nt, nd Neuro: Alert, oriented; CN grossly intact MSK: age appropriate muscle mass Skin: pale complexion Const: Vital Signs, click to edit/add: Vital Signs - 24 hr 09/23/21 19:29 09/23/21 20:36 Temperature 97.0 F L Pulse Rate [Left B rachial] 66 65 Respiratory Rate 18 14 Blood Pressure [Ri ght Upper Arm] 114/91 H 126/62 Pulse Oximetry 95 90 Hospitalist - H&P: Result Labs Labs: Short CBC 09/23/21 Range/Units 20:25 WBC 9.70 (4.50-11.00) K/uL Hgb 6.2 L* (12.0-16.0) gm/dL Hct 23.6 L (33.0-51.0) % Plt Count 597 H (140-440) K/uL BMP 09/23/21 20:25 Sodium 135 Potassium 3.5 L Chloride 103 Carbon Dioxide 23 BUN 22 Creatinine 0.8 Glucose 122 H Calcium 7.2 L Liver Function 09/23/21 Range/Units 20:25 Total Bilirubin 0.8 (0.1-1.5) mg/dL AST 26 (12-35) U/L ALT 11 (4-35) U/L Alkaline Phosphatase 90 (40-150) U/L Albumin 3.3 (3.3-5.0) g/dL Assessment and Plan Assessment and plan (1) Anemia: Status: Acute Plan Assessment: Carlita Morocho is a 80 year old female presenting from clinic for evaluation of anemia and fatigue. The patient has PMhx of PE (on eliquis), CHF, COPD. She endorses fatigue, dizziness, and generalized weakness. She denies chest pain and SOB. Her hgb in the ED was 6.2. She denies melena, hematochezia, hematemesis. She denies fever, increased urinary frequency. She denies abdominal pain. She was started on IVF and 1 unit of pRBC was ordered. Microcytic Anemia/Symptomatic Anemia Hx of PE on eliquis Hx of CHF Hx of HTN Hx of HLD Hx of Neuropathy Hx of Emphysema/COPD Hx of T12 Fx Rule out UTI Plan -admit to obs; if GIB confirmed switch to inpatient -serial hgb; transfuse to hgb>8 -transfuse 2 units -npo for now -check FOBT -check iron studies -consult surgery if active bleeding noted -hold eliquis -IV PPI -ceftriaxone; UCx add on -hold antihypertensives -hold statin -hold lasix for now code status-Full
[2021-09-23 21:54] LABS: Slide Review Reflex No
[2021-09-23 21:56] LABS: SARS PCR* Negative SARS-CoV-2 (Negative)
--- NOTE | 2021-09-23 22:01 | W.PC.EDHO ---
Primary Language: Preferred Language: Orientation Status: x Alert & Oriented [] Slight Confusion [] Known Dx Dementia Transfers By: [] Assist of 1 [] Assist of 2 [] Lift IV Size: IV Site Location: Active Medications Generic Name Dose Route Start Last Admin Trade Name Chema PRN Reason Stop Dose Admin Sodium Chloride 1,000 mls @ 125 mls/hr 09/23/21 20:08 09/23/21 20:29 0.9 % Sodium Chloride 1000 Ml IV 125 mls/hr .Q8H INÉS Administration Description of Symptoms ED Triage Present Problem Pt brought in by EMS, states she had routine lab Description work today, was told hemoglobin is low, pt states she has been dizzy off and on today. Pt is unsure who called the ambulance but is here for eval of symptoms. Pt denies chest pain, denies shortness of breath. Per pt no hx of anemia, no hx of blood transfusion. No blood in stool, no abdominal pain. ED Triage Date of Onset of 09/23/21 Symptoms Female History Patient No [place] Coma Scale Bandar coma scale total score 15 IV Insertion/Site Date of IV Line Insertion [ 09/23/21 Left Antecubital] Oxygen Administration Pulse Oximetry 90 Pulse Oximetry 95 Oxygen Delivery Method Room Air Oxygen Delivery Method Room Air Cardiac Monitoring EKG Method 12 Lead
[2021-09-23 22:03] LABS: Albumin* 3.3 g/dL (3.3-5.0)
[2021-09-23 22:06] LABS: Alanine Aminotransferase* 11 U/L (4-35); Alkaline Phosphatase* 89 U/L (40-150); Aspartate Amino Transferase* 49 U/L (12-35); Bilirubin Direct* 0.4 mg/dL (0.0-0.5); Bilirubin Total* 0.7 mg/dL (0.1-1.5); Lactate Dehydrogenase* 763 U/L (313-618); Total Protein* 5.8 g/dL (6.0-8.3)
[2021-09-23 22:07] LABS: Iron* 17 ug/dL (37-170)
[2021-09-23 22:16] LABS: Percent Iron Saturation 4 % (20-50); Total Iron Binding Capacity 430 ug/dL (265-497)
[2021-09-23 22:32] VITALS: BP 120/58; PULSE 67; RESP 18; TEMP 36.3; O2SAT 92; BMI 29.1
[2021-09-23 23:00] VITALS: PULSE 67; RESP 24
[2021-09-23 23:58] VITALS: BP 120/74; PULSE 66; RESP 24; TEMP 36.5; O2SAT 94
[2021-09-24] VITALS (17 sets, daily range): BP systolic 109–143; BP diastolic 47–74; PULSE 59–78; RESP 16–24; TEMP 35.9–36.8; O2SAT 90–95
[2021-09-24] MEDS: OXYCODONE 5 MG TABLET PO (01:58)
[2021-09-24] MEDS: cefTRIAXone 1 GM in 0.9 % SODIUM CHLORIDE Mini-bag 100 ML IVPB (06:11)
[2021-09-24] MEDS: PANTOPRAZOLE SODIUM 40 MG INJ IVP (06:25)
[2021-09-24 07:17] LABS: Basophils Absolute Auto 0.03 K/uL (0.00-0.30); Basophils Percent Auto 0.4 % (0.0-3.0); Eosinophils Absolute Auto 0.18 K/uL (0.00-0.50); Eosinophils Percent Auto 2.3 % (0.0-7.0); Hemoglobin* 8.1 gm/dL (12.0-16.0); Immature Granulocytes Abs Auto 0.04 K/uL (0.00-0.30); Mean Corpuscular HGB Conc 28 gm/dL (32-36); Mean Corpuscular Hemoglobin 22 pg (26-34); Mean Corpuscular Volume 78 fL (80-100); Monocytes Percent Auto 6.8 % (0.0-11.0); Platelet Count* 604 K/uL (140-440); RDW Coefficient of Variation % 25.6 % (11.5-15.5); Red Blood Count 3.74 m/uL (4.00-5.20); White Blood Count* 7.74 K/uL (4.50-11.00)
--- NOTE | 2021-09-24 07:17 | PC.NURSE ---
NURSING NOTE [id number]: PT PLEASANT AND COOPERATIVE. PT RECEIVED 2 UNITS OF PRBC. PT STABLE. PT REQUIRED 1L NC TO MAINTAIN 02 SATS >90%. TELE READS SINUS ARRHYTHMIA 60-70'S. PT NPO. FIRST NEGATIVE GUAIAC TEST. AMBULATES WITH WALKER, GB, A1. BED ALARM ON, BED IN LOW POSITION, BED RAILS RAISED, CALL LIGHT WITHIN REACH. LOWER BACK PAIN RATED 5/10 THAT WAS RELIEVED WITH 2.5MG OXYCODONE.
[2021-09-24 07:18] LABS: Slide Review Reflex No
[2021-09-24 07:29] LABS: Chloride* 106 mmol/L (96-114); Potassium* 3.2 mmol/L (3.6-5.1); Sodium* 138 mmol/L (135-149)
[2021-09-24 07:32] LABS: Blood Urea Nitrogen* 19 mg/dL (7-30); Carbon Dioxide* 25 mmol/L (20-32); Creatinine* 0.8 mg/dL (0.5-1.5); Est. Creatinine Clearance* 45.09; Estimated Glomerular Filt Rate 75.37
[2021-09-24 07:33] LABS: Calcium* 6.9 mg/dL (8.4-10.6); Glucose* 105 mg/dL (60-115)
[2021-09-24] MEDS: POTASSIUM PHOS/SODIUM PHOS 250 MG TABLET PO ×2 (11:44→20:38)
--- NOTE | 2021-09-24 12:07 | P.IMPN_ITS ---
Progress Note: A&P Assessment and plan (1) Iron deficiency anemia: Status: Acute Assessment and Plan: Potential GI blood loss, unclear acuity. iv PPI x 1, po PPI to begin tomorrow hold eliquis check stool for blood s/p transfusion, serial hemoglobins consider EGD (concern that she takes aleve for chronic headaches) - general surgery will evaluate later but is tentatively on for the morning. difficult to ascertain the rate of drop as there is no recent hemoglobin history. last I can find is 06/06 at it was 12. (2) Congestive heart failure: Status: Acute Assessment and Plan: no recent echo, ordered for this afternoon on digoxin 125 mcg, Norvasc 5 mg, Lasix 20 mg, Zocor 20 mg, potassium supplementation. I restarted her home meds. (3) Personal history of pulmonary embolism: Problem details: 2018; has been on eliquis 5 mg bid Status: Acute Assessment and Plan: hold eliquis until acute anemia is sorted out (4) Essential (primary) hypertension: Status: Acute Assessment and Plan: Restarted her Norvasc, 5 mg. (5) UTI (urinary tract infection): Status: Acute Assessment and Plan: Continue IV Rocephin until urine culture has returned (6) Acute hypokalemia: Status: Acute Assessment and Plan: Mild. Trend. Replacing by oral. Exam Const: Vital Signs, click to edit/add: Vital Signs - 24 hr 09/23/21 19:29 09/23/21 20:36 09/23/21 21:00 Temperature 97.0 F L Pulse Rate Pulse Rate [Apical ] Pulse Rate [Left B rachial] 66 65 66 Pulse Rate [Left P ulse Oximeter] Pulse Rate [Right Pulse Oximeter] Respiratory Rate 18 14 18 Blood Pressure Blood Pressure [Ri ght Upper Arm] 114/91 H 126/62 132/57 L Blood Pressure [ri ght arm] Pulse Oximetry 95 90 98 09/23/21 22:32 09/23/21 23:00 09/23/21 23:58 Temperature 97.4 F L 97.7 F Pulse Rate 66 Pulse Rate [Apical ] Pulse Rate [Left B rachial] Pulse Rate [Left P ulse Oximeter] 67 67 Pulse Rate [Right Pulse Oximeter] Respiratory Rate 18 24 24 Blood Pressure 120/74 Blood Pressure [Ri ght Upper Arm] Blood Pressure [ri ght arm] 120/58 L Pulse Oximetry 92 94 09/24/21 00:17 09/24/21 01:02 09/24/21 02:02 Temperature 97.9 F 97.5 F L 97.7 F Pulse Rate 65 69 Pulse Rate [Apical ] Pulse Rate [Left B rachial] Pulse Rate [Left P ulse Oximeter] Pulse Rate [Right Pulse Oximeter] Respiratory Rate 24 24 24 Blood Pressure 126/49 L 128/47 L 109/63 Blood Pressure [Ri ght Upper Arm] Blood Pressure [ri ght arm] Pulse Oximetry 09/24/21 03:21 09/24/21 03:26 09/24/21 03:30 Temperature 97.5 F L 97.5 F L 98.3 F Pulse Rate 65 65 60 Pulse Rate [Apical ] Pulse Rate [Left B rachial] Pulse Rate [Left P ulse Oximeter] Pulse Rate [Right Pulse Oximeter] Respiratory Rate 22 22 24 Blood Pressure 136/74 136/74 129/56 L Blood Pressure [Ri ght Upper Arm] Blood Pressure [ri ght arm] Pulse Oximetry 92 92 95 09/24/21 04:15 09/24/21 04:56 09/24/21 05:20 Temperature 98.1 F Pulse Rate 61 60 Pulse Rate [Apical ] Pulse Rate [Left B rachial] Pulse Rate [Left P ulse Oximeter] Pulse Rate [Right Pulse Oximeter] Respiratory Rate 22 24 Blood Pressure 136/59 L Blood Pressure [Ri ght Upper Arm] Blood Pressure [ri ght arm] Pulse Oximetry 92 92 09/24/21 05:22 09/24/21 06:35 09/24/21 07:19 Temperature 98.0 F Pulse Rate 63 63 Pulse Rate [Apical ] Pulse Rate [Left B rachial] Pulse Rate [Left P ulse Oximeter] Pulse Rate [Right Pulse Oximeter] Respiratory Rate 24 24 Blood Pressure 133/56 L Blood Pressure [Ri ght Upper Arm] Blood Pressure [ri ght arm] Pulse Oximetry 92 91 09/24/21 07:43 09/24/21 11:37 Temperature 97.0 F L 97.3 F L Pulse Rate Pulse Rate [Apical ] 59 L Pulse Rate [Left B rachial] Pulse Rate [Left P ulse Oximeter] Pulse Rate [Right Pulse Oximeter] 61 Respiratory Rate 16 18 [facility] 137/64 138/62 Pulse Oximetry 90 94 Labs Labs: Laboratory Results - last 24 hr 09/23/21 09/23/21 09/23/21 20:24 20:25 20:25 WBC 9.70 RBC 3.15 L Hgb 6.2 L* Hct 23.6 L MCV 75 L MCH 20 L MCHC 26 L RDW Coeff of Anaya 28.2 H Plt Count 597 H Neut % (Auto) 81.3 H Lymph % (Auto) 10.5 L Weber % (Auto) 6.6 Eos % (Auto) 0.9 Baso % (Auto) 0.4 Neut # (Auto) 7.90 H Lymph # (Auto) 1.00 Weber # (Auto) 0.60 Eos # (Auto) 0.09 Baso # (Auto) 0.04 Abs Immat Gran (auto) 0.03 Sodium 135 Potassium 3.5 L Chloride 103 Carbon Dioxide 23 BUN 22 Creatinine 0.8 Estimated Creat Clear 45.09 Glucose 122 H Calcium 7.2 L Iron TIBC % Saturation Total Bilirubin 0.8 Direct Bilirubin AST 26 ALT 11 Alkaline Phosphatase 90 Lactate Dehydrogenase Total Protein 5.8 L Albumin 3.3 TSH SARS-CoV-2 (PCR) Negative SARS-CoV-2 Blood Type Antibody Screen Crossmatch ([facility]) 09/23/21 09/23/21 09/23/21 20:25 20:25 20:25 WBC RBC Hgb Hct MCV MCH MCHC RDW Coeff of Anaya Plt Count Neut % (Auto) Lymph % (Auto) Weber % (Auto) Eos % (Auto) Baso % (Auto) Neut # (Auto) Lymph # (Auto) Weber # (Auto) Eos # (Auto) Baso # (Auto) Abs Immat Gran (auto) Sodium Potassium Chloride Carbon Dioxide BUN Creatinine Estimated Creat Clear Glucose Calcium Iron 17 L TIBC 430 % Saturation 4 L Total Bilirubin 0.7 Direct Bilirubin 0.4 AST 49 H ALT 11 Alkaline Phosphatase 89 Lactate Dehydrogenase 763 H Total Protein 5.8 L Albumin 3.3 TSH SARS-CoV-2 (PCR) Blood Type A Positive Antibody Screen NEGATIVE Crossmatch ([facility]) See Detail 09/23/21 09/24/21 09/24/21 20:25 06:19 06:19 WBC 7.74 RBC 3.74 L Hgb 8.1 L Hct 29.0 L MCV 78 L MCH 22 L MCHC 28 L RDW Coeff of Anaya 25.6 H Plt Count 604 H Neut % (Auto) 79.0 H Lymph % (Auto) 11.0 L Weber % (Auto) 6.8 Eos % (Auto) 2.3 Baso % (Auto) 0.4 Neut # (Auto) 6.10 Lymph # (Auto) 0.90 Weber # (Auto) 0.50 Eos # (Auto) 0.18 Baso # (Auto) 0.03 Abs Immat Gran (auto) 0.04 Sodium 138 Potassium 3.2 L Chloride 106 Carbon Dioxide 25 BUN 19 Creatinine 0.8 Estimated Creat Clear 45.09 Glucose 105 Calcium 6.9 L Iron TIBC % Saturation Total Bilirubin Direct Bilirubin AST ALT Alkaline Phosphatase Lactate Dehydrogenase Total Protein Albumin TSH 2.880 SARS-CoV-2 (PCR) Blood Type Antibody Screen Crossmatch ([facility])
[2021-09-24 13:17] LABS: Hemoglobin* 8.5 gm/dL (12.0-16.0)
--- NOTE | 2021-09-24 17:17 | PM.GSCN ---
History of Present Illness Consult details Consult date: 09/24/21 Narrative: The patient is a 80-year-old female who is seen in clinic and noted to be profoundly anemic. She was sent to the hospital. She states that she has been weak and dizzy for about 1 week. She states that she is lightheaded with standing but otherwise feels fine. She states that she does not know how she got here and states that someone from the hospital call the ambulance to bring her. She states ?my daughter said my mind is flipping. ? She denies chest pain or shortness of breath. She has no blood in her stool. She does take and says intermittently for headache but she states not daily. She is on Eliquis for history of blood clots 3 years ago. She has never had a colonoscopy. She denies abdominal pain. No family history of gastric or colon cancer. In the emergency department hemoglobin is found to be 6.2. She was given PRBCs and her hemoglobin came up to 8.1. That has been stable on recheck. The patient is unaware of her surgical history but states that she has had a cholecystectomy at some point. Review of Systems Status of ROS: Reports: 10 or more systems reviewed and unremarkable except as noted in History and below [facility] Medical History (Updated 09/24/21 @ 12:24 by Evelyn Stout MD) Age related osteoporosis Alcohol dependence in remission Congestive heart failure Emphysema lung Essential (primary) hypertension Fracture of shaft of right fibula Heart failure, unspecified Hyperlipidemia Iron deficiency anemia Major depressive disorder Nonrheumatic mitral (valve) insufficiency Nonrheumatic tricuspid (valve) insufficiency Osteoarthritis Personal history of pulmonary embolism Polyneuropathy Pulmonary embolism without acute cor pulmonale Social History (Updated 09/24/21 @ 17:05 by Abigail Matos MD) Narrative: Patient lives in assisted living in [facility]. She does not smoke or drink alcohol. She has a daughter who lives nearby and is involved in her care. Highest level of school completed/degree received: some college, no degree Smoking Status: Former smoker Do you use any of these nicotine containing products: None Second hand tobacco smoke exposure: No How often do you have a drink containing alcohol: never AUDIT-C Alcohol total score: 0 Non-prescribed substance use: denies use Caffeine: Yes (coffee(x1) and ice tea(x3) daily) service: No Meds Home Medications and Allergies Home Medications Medication Instructions Recorded Confirmed Type acetaminophen 325 mg tablet 325 - 650 mg PO Q4-6H PRN 09/14/21 09/24/21 History amlodipine 5 mg tablet 5 mg PO DAILY 09/14/21 09/23/21 History apixaban 5 mg tablet (Eliquis) 5 mg PO BID 09/14/21 09/23/21 History digoxin 125 mcg (0.125 mg) tablet 125 mcg PO DAILY 09/14/21 09/23/21 History furosemide 20 mg tablet 20 mg PO DAILY 09/14/21 09/23/21 History gabapentin 300 mg capsule 300 mg PO BID 09/14/21 09/24/21 History potassium chloride 20 mEq 20 meq PO DAILY 09/14/21 09/23/21 History tablet,extended release(part/cryst) simvastatin 20 mg tablet 20 mg PO HS 09/14/21 09/23/21 History naproxen sodium 220 mg capsule 220 mg PO BID PRN 09/24/21 09/24/21 History (Aleve) oxybutynin chloride 15 mg 15 mg PO DAILY 09/24/21 09/24/21 History tablet,extended release 24 hr Allergies Allergy/AdvReac Type Severity Reaction Status Date / Time No Known Drug Allergies Allergy Verified 09/16/21 14:34 Exam Narrative: Exam Narrative: General appearance: Alert, cooperative, and in no distress Eyes: PERRLA, eye lids clear, and sclera white HENT Head: Normocephalic Pulmonary: Clear bilaterally Cardiovascular Heart: Regular rate and rhythm Extremities: warm and well perfused Gastrointestinal Abdominal: Soft, nontender, no scars visible Musculoskeletal: Extremities: Upper: Both upper extremities have normal joint range of motion and intact strength. Lower: Both lower extremities have normal joint range of motion and intact strength. Skin: Normal skin color, texture, and turgor. No rashes or lesions. Neurologic: No focal deficits Psychiatric: normal affect. Const: Vital Signs, click to edit/add: Vital Signs - 24 hr 09/23/21 19:29 09/23/21 20:36 09/23/21 21:00 Temperature 97.0 F L Pulse Rate Pulse Rate [Apical ] Pulse Rate [Left B rachial] 66 65 66 Pulse Rate [Left P ulse Oximeter] Pulse Rate [Right Pulse Oximeter] Respiratory Rate 18 14 18 Blood Pressure Blood Pressure [Ri ght Upper Arm] 114/91 H 126/62 132/57 L Blood Pressure [ri ght arm] Pulse Oximetry 95 90 98 09/23/21 22:32 09/23/21 23:00 09/23/21 23:58 Temperature 97.4 F L 97.7 F Pulse Rate 66 Pulse Rate [Apical ] Pulse Rate [Left B rachial] Pulse Rate [Left P ulse Oximeter] 67 67 Pulse Rate [Right Pulse Oximeter] Respiratory Rate 18 24 24 Blood Pressure 120/74 Blood Pressure [Ri ght Upper Arm] Blood Pressure [ri ght arm] 120/58 L Pulse Oximetry 92 94 09/24/21 00:17 09/24/21 01:02 09/24/21 02:02 Temperature 97.9 F 97.5 F L 97.7 F Pulse Rate 65 69 Pulse Rate [Apical ] Pulse Rate [Left B rachial] Pulse Rate [Left P ulse Oximeter] Pulse Rate [Right Pulse Oximeter] Respiratory Rate 24 24 24 Blood Pressure 126/49 L 128/47 L 109/63 Blood Pressure [Ri ght Upper Arm] Blood Pressure [ri ght arm] Pulse Oximetry 09/24/21 03:21 09/24/21 03:26 09/24/21 03:30 Temperature 97.5 F L 97.5 F L 98.3 F Pulse Rate 65 65 60 Pulse Rate [Apical ] Pulse Rate [Left B rachial] Pulse Rate [Left P ulse Oximeter] Pulse Rate [Right Pulse Oximeter] Respiratory Rate 22 22 24 Blood Pressure 136/74 136/74 129/56 L Blood Pressure [Ri ght Upper Arm] Blood Pressure [ri ght arm] Pulse Oximetry 92 92 95 09/24/21 04:15 09/24/21 04:56 09/24/21 05:20 Temperature 98.1 F Pulse Rate 61 60 Pulse Rate [Apical ] Pulse Rate [Left B rachial] Pulse Rate [Left P ulse Oximeter] Pulse Rate [Right Pulse Oximeter] Respiratory Rate 22 24 Blood Pressure 136/59 L Blood Pressure [Ri ght Upper Arm] Blood Pressure [ri ght arm] Pulse Oximetry 92 92 09/24/21 05:22 09/24/21 06:35 09/24/21 07:19 Temperature 98.0 F Pulse Rate 63 63 Pulse Rate [Apical ] Pulse Rate [Left B rachial] Pulse Rate [Left P ulse Oximeter] Pulse Rate [Right Pulse Oximeter] Respiratory Rate 24 24 Blood Pressure 133/56 L Blood Pressure [Ri ght Upper Arm] Blood Pressure [ri ght arm] Pulse Oximetry 92 91 09/24/21 07:43 09/24/21 11:37 09/24/21 15:23 Temperature 97.0 F L 97.3 F L Pulse Rate 78 Pulse Rate [Apical ] 59 L Pulse Rate [Left B rachial] Pulse Rate [Left P ulse Oximeter] Pulse Rate [Right Pulse Oximeter] 61 Respiratory Rate 16 18 Blood Pressure Blood Pressure [Ri ght Upper Arm] Blood Pressure [ri ght arm] 137/64 138/62 Pulse Oximetry 90 94 09/24/21 16:42 Temperature 97.8 F Pulse Rate Pulse Rate [Apical ] 59 L Pulse Rate [Left B rachial] Pulse Rate [Left P ulse Oximeter] Pulse Rate [Right Pulse Oximeter] 59 L Respiratory Rate 18 Blood Pressure Blood Pressure [Ri ght Upper Arm] Blood Pressure [ri ght arm] 134/66 Pulse Oximetry 95 Results Labs Labs: Abnormal lab results 09/23/21 09/23/21 09/23/21 Range/Units 20:25 20:25 20:25 RBC 3.15 L (4.00-5.20) m/uL Hgb 6.2 L* (12.0-16.0) gm/dL Hct 23.6 L (33.0-51.0) % MCV 75 L (80-100) fL MCH 20 L (26-34) pg MCHC 26 L (32-36) gm/dL RDW Coeff of Anaya 28.2 H (11.5-15.5) % Plt Count 597 H (140-440) K/uL Neut % (Auto) 81.3 H (42.0-72.0) % Lymph % (Auto) 10.5 L (20-44) % Neut # (Auto) 7.90 H (1.7-7.0) K/uL Potassium 3.5 L (3.6-5.1) mmol/L Glucose 122 H (60-115) mg/dL Calcium 7.2 L (8.4-10.6) mg/dL Iron (37-170) ug/dL % Saturation (20-50) % AST (12-35) U/L Lactate Dehydrogenase (313-618) U/L Total Protein 5.8 L (6.0-8.3) g/dL Crossmatch ([facility]) See Detail 09/23/21 09/23/21 09/24/21 Range/Units 20:25 20:25 06:19 RBC 3.74 L (4.00-5.20) m/uL Hgb 8.1 L (12.0-16.0) gm/dL Hct 29.0 L (33.0-51.0) % MCV 78 L (80-100) fL MCH 22 L (26-34) pg MCHC 28 L (32-36) gm/dL RDW Coeff of Anaya 25.6 H (11.5-15.5) % Plt Count 604 H (140-440) K/uL Neut % (Auto) 79.0 H (42.0-72.0) % Lymph % (Auto) 11.0 L (20-44) % Neut # (Auto) (1.7-7.0) K/uL Potassium (3.6-5.1) mmol/L Glucose (60-115) mg/dL Calcium (8.4-10.6) mg/dL Iron 17 L (37-170) ug/dL % Saturation 4 L (20-50) % AST 49 H (12-35) U/L Lactate Dehydrogenase 763 H (313-618) U/L Total Protein 5.8 L (6.0-8.3) g/dL Crossmatch ([facility]) 09/24/21 09/24/21 Range/Units 06:19 13:12 RBC (4.00-5.20) m/uL Hgb 8.5 L (12.0-16.0) gm/dL Hct (33.0-51.0) % MCV (80-100) fL MCH (26-34) pg MCHC (32-36) gm/dL RDW Coeff of Anaya (11.5-15.5) % Plt Count (140-440) K/uL Neut % (Auto) (42.0-72.0) % Lymph % (Auto) (20-44) % Neut # (Auto) (1.7-7.0) K/uL Potassium 3.2 L (3.6-5.1) mmol/L Glucose (60-115) mg/dL Calcium 6.9 L (8.4-10.6) mg/dL Iron (37-170) ug/dL % Saturation (20-50) % AST (12-35) U/L Lactate Dehydrogenase (313-618) U/L Total Protein (6.0-8.3) g/dL Crossmatch ([facility]) Diabetes panel 09/23/21 09/23/21 09/24/21 Range/Units 20:25 20:25 06:19 Sodium 135 138 (135-149) mmol/L Potassium 3.5 L 3.2 L (3.6-5.1) mmol/L Chloride 103 106 (96-114) mmol/L Carbon Dioxide 23 25 (20-32) mmol/L BUN 22 19 (7-30) mg/dL Creatinine 0.8 0.8 (0.5-1.5) mg/dL Glucose 122 H 105 (60-115) mg/dL Calcium 7.2 L 6.9 L (8.4-10.6) mg/dL AST 26 49 H (12-35) U/L ALT 11 11 (4-35) U/L Alkaline Phosphatase 90 89 (40-150) U/L Total Protein 5.8 L 5.8 L (6.0-8.3) g/dL Albumin 3.3 3.3 (3.3-5.0) g/dL Thyroid panel 09/23/21 Range/Units 20:25 TSH 2.880 (0.270-4.20) uIU/mL Calcium panel 09/23/21 09/23/21 09/24/21 Range/Units 20:25 20:25 06:19 Calcium 7.2 L 6.9 L (8.4-10.6) mg/dL Albumin 3.3 3.3 (3.3-5.0) g/dL Pituitary panel 09/23/21 09/23/21 09/24/21 Range/Units 20:25 20:25 06:19 Sodium 135 138 (135-149) mmol/L Potassium 3.5 L 3.2 L (3.6-5.1) mmol/L Chloride 103 106 (96-114) mmol/L Carbon Dioxide 23 25 (20-32) mmol/L BUN 22 19 (7-30) mg/dL Creatinine 0.8 0.8 (0.5-1.5) mg/dL Glucose 122 H 105 (60-115) mg/dL Calcium 7.2 L 6.9 L (8.4-10.6) mg/dL TSH 2.880 (0.270-4.20) uIU/mL Adrenal panel 09/23/21 09/23/21 09/24/21 Range/Units 20:25 20:25 06:19 Sodium 135 138 (135-149) mmol/L Potassium 3.5 L 3.2 L (3.6-5.1) mmol/L Chloride 103 106 (96-114) mmol/L Carbon Dioxide 23 25 (20-32) mmol/L BUN 22 19 (7-30) mg/dL Creatinine 0.8 0.8 (0.5-1.5) mg/dL Glucose 122 H 105 (60-115) mg/dL Calcium 7.2 L 6.9 L (8.4-10.6) mg/dL Total Bilirubin 0.8 0.7 (0.1-1.5) mg/dL AST 26 49 H (12-35) U/L ALT 11 11 (4-35) U/L Alkaline Phosphatase 90 89 (40-150) U/L Total Protein 5.8 L 5.8 L (6.0-8.3) g/dL Albumin 3.3 3.3 (3.3-5.0) g/dL All other labs normal. Imaging Additional studies: Diagnostic Imaging Report Patient: Carlita Morocho MR#: [id number] : 1940 Acct:[id number] Loc: CT Service Date: 09/17/[address]: Macho Davis M.D. Ordering Physician: Macho Davis M.D. Date of Service: 09/17/21 Procedure(s): CT chest wo con Accession Number(s): [id number] cc: Macho Davis M.D.; Milagros Pierre DNP, RN~ For Patients:? As a result of the Cures Act, medical imaging exams and procedure reports are released immediately into your electronic medical record.? You may view this report before your referring provider.? If you have questions, please contact your health care provider. Indication: Pulmonary nodule Technique: ?Noncontrast CT chest Comparison: ?CT chest 08/21/2020 Findings: Normal caliber thoracic aorta. Heart is mildly enlarged. Coronary artery calcification. No pericardial effusion. Calcified left hilar lymph nodes and mediastinal nodes. No pleural effusion. Mild emphysema. 3 millimeter subpleural left lower lobe pulmonary nodule series 3, image 57, unchanged. Right middle lobe lingular strandy atelectasis/scarring not significantly changed. No new nodules are seen. Left upper lobe granuloma. Right lower lobe bronchiectasis. Splenic granulomas. Low-attenuation lesion left kidney incompletely assessed cholecystectomy. No suspicious bony lesions. Impression: ?1. 3 millimeter left lower lobe pulmonary nodule unchanged. No new nodules are seen. 2. Emphysema. [employer] GUID[employer]INES - SOLID NODULES: SINGLE LOW RISK - nodule less than 6 mm: No routine follow-up. - nodule 6-8 mm: CT at 6-12 months, then consider CT at 18-24 months. - nodule greater than 8 mm: Consider CT at 3 months, PET/CT or tissue sampling. SINGLE HIGH RISK - nodule less than 6 mm: Optional CT at 12 months. - nodule 6-8 mm: CT at 6-12 months, then CT at 18-24 months. - nodule greater than 8 mm: Consider CT at 3 months, PET/CT or tissue sampling. MULTIPLE LOW RISK - nodule less than 6 mm: No routine follow-up. - nodule 6-8 mm: CT at 3-6 months, then consider CT at 18-24 months. - nodule greater than 8 mm: CT at 3-6 months, then consider CT at 18-24 months. MULTIPLE HIGH RISK - nodule less than 6 mm: Optional CT at 12 months. - nodule 6-8 mm: CT at 3-6 months, then at 18-24 months. - nodule greater than 8 mm: CT at 3-6 months, then at 18-24 months. Please note that all CT scans at this facility use dose modulation, iterative reconstruction, and/or weight-based dosing when appropriate to reduce radiation dose to as low as reasonably achievable. Dictated by Krista Pritchett MD @ 09/17/2021 12:41:08 PM (Electronically Signed) Assessment and Plan Assessment and plan (1) Iron deficiency anemia: Status: Acute (2) Congestive heart failure: Status: Acute (3) Personal history of pulmonary embolism: Problem comment: 2019; has been on eliquis 5 mg bid Status: Acute (4) Essential (primary) hypertension: Status: Acute (5) UTI (urinary tract infection): Status: Acute (6) Acute hypokalemia: Status: Acute Plan The patient is a 80-year-old female with iron deficiency anemia of unclear origin. She does have a history of NSAID use and is on anticoagulation. She did have a negative guaiac. It seems reasonable to proceed with upper endoscopy however the patient refuses colonoscopy. The patient and I discussed the risks and benefits of the procedure and she agreed to proceed. We will plan on doing this tomorrow. She should be NPO at midnight. Continue to hold Eliquis. I would like to get consent tomorrow from her daughter given the patient's mental status. She answers very clearly many questions, however she is unclear as to how she got to the hospital.
--- NOTE | 2021-09-24 18:19 | PC.NURSE ---
0619 hemoglobin 8.1 and 1312 hemoglobin 8.5 after 2 unit PRBC transfusion. No signs/symptoms of active bleeding. No BMs. Telemetry Sinus Arrhythmia. Tolerating regular diet. Denies pain.
[2021-09-24] MEDS: GABAPENTIN 300 MG CAPSULE PO (20:38)
[2021-09-24] MEDS: SIMVASTATIN 20 MG TABLET PO (20:41)
[2021-09-24 23:39] LABS: Hemoglobin* 8.1 gm/dL (12.0-16.0)
[2021-09-25] VITALS (10 sets, daily range): BP systolic 144–156; BP diastolic 61–74; PULSE 53–93; RESP 16–18; TEMP 36.1–36.4; O2SAT 91–94
--- NOTE | 2021-09-25 05:14 | PC.NURSE ---
Shift note 19-: Pt alert w/ minor forgetfulness. Up to BR w/ SBA and walker, weakness remains, no c/o pain. NPO since MN for EGD procedure. 2nd guaiac negative.
[2021-09-25] MEDS: cefTRIAXone 1 GM in 0.9 % SODIUM CHLORIDE Mini-bag 100 ML IVPB (06:14)
[2021-09-25] MEDS: OMEPRAZOLE 20 MG CAPSULE DR PO (06:15)
[2021-09-25 07:05] LABS: HCO3 VBG 24 mmol/L (21-28); PCO2 VBG 40 mmHG (40-50); PO2 VBG 69.7 mmHG (25-47)
[2021-09-25 07:18] LABS: Basophils Absolute Auto 0.05 K/uL (0.00-0.30); Basophils Percent Auto 0.9 % (0.0-3.0); Eosinophils Percent Auto 7.7 % (0.0-7.0); Hematocrit 28.2 % (33.0-51.0); Immature Granulocytes Abs Auto 0.03 K/uL (0.00-0.30); Immature Reticulocyte Fraction 4.9 % (3.0-15.9); Lymphocytes Absolute Auto 1.25 K/uL (0.90-2.90); Lymphocytes Percent Auto 21.5 % (20-44); Mean Corpuscular HGB Conc 27 gm/dL (32-36); Mean Corpuscular Hemoglobin 21 pg (26-34); Mean Corpuscular Volume 78 fL (80-100); Neutrophils Absolute Auto 3.46 K/uL (1.7-7.0); Neutrophils Percent Auto 59.4 % (42.0-72.0); Platelet Count* 580 K/uL (140-440); RDW Coefficient of Variation % 26.2 % (11.5-15.5); Red Blood Count 3.63 m/uL (4.00-5.20); Reticulocyte Hemoglobin Equivi 12.2 pg (29.0-35.0); Reticulocyte Percent 1.6 % (0.5-2.0); Reticulocytes Absolute 0.06 # (0.03-0.08); White Blood Count* 5.82 K/uL (4.50-11.00)
[2021-09-25 07:44] LABS: INR 1.16 (0.91-1.10); Prothrombin Time 15.3 Seconds
[2021-09-25 07:46] LABS: Chloride* 113 mmol/L (96-114)
[2021-09-25 07:47] LABS: Albumin* 2.8 g/dL (3.3-5.0); Potassium* 3.2 mmol/L (3.6-5.1); Sodium* 140 mmol/L (135-149)
[2021-09-25 07:49] LABS: Creatinine* 0.7 mg/dL (0.5-1.5); Est. Creatinine Clearance* 44.36; Estimated Glomerular Filt Rate 87.92
[2021-09-25 07:50] LABS: Alanine Aminotransferase* 9 U/L (4-35); Alkaline Phosphatase* 84 U/L (40-150); Aspartate Amino Transferase* 18 U/L (12-35); Bilirubin Total* 0.4 mg/dL (0.1-1.5); Blood Urea Nitrogen* 17 mg/dL (7-30); Carbon Dioxide* 25 mmol/L (20-32); Gamma Glutamyl Transpeptidase* 19 U/L (8-55); Glucose* 110 mg/dL (60-115); Lipase* 123 U/L (23-300); Magnesium* 2.1 mg/dL (1.5-2.6)
[2021-09-25 07:52] LABS: C Reactive Protein* 7.1 mg/dL (0.5-1.0)
[2021-09-25 07:54] LABS: Hemoglobin* 7.6 gm/dL (12.0-16.0); NT Pro B Type NatriureticPept* 1170 PG/mL (0-450)
[2021-09-25 08:01] LABS: Troponin I* < 0.01 ng/mL (0.01-0.04)
--- NOTE | 2021-09-25 08:08 | PC.NURSE ---
Critical Value-- Notified by lab of critical hemoglobin 7.6. Dr. Jonas notified.
[2021-09-25 08:21] LABS: Ferritin* 8.4 ng/mL (11.1-264.0)
[2021-09-25] MEDS: POTASSIUM BICARB 25 MEQ EFFERVESCENT TAB PO (09:12)
[2021-09-25] MEDS: POTASSIUM CHLORIDE 10 MEQ/100 ML PIGGYBACK 100 MEQ IVPB (09:13)
--- NOTE | 2021-09-25 11:39 | W.ANESCHARGE ---
Anesthesia Charges Start Date/Time Anesthesia Start Date: 09/25/21 Anesthesia Start Time: 11:05 Stop Date/Time Anesthesia Stop Date: 09/25/21 Anesthesia Stop Time: 11:30 Summary Emergency: No Extremes of Age: Over 72-CPT [id number]
--- NOTE | 2021-09-25 11:48 | W.ANESCHARGE ---
Anesthesia Charges Start Date/Time Anesthesia Start Date: 09/25/21 Anesthesia Start Time: 11:05 Stop Date/Time Anesthesia Stop Date: 09/25/21 Anesthesia Stop Time: 11:30 Summary Emergency: No
[2021-09-25] MEDS: GABAPENTIN 300 MG CAPSULE PO (12:13)
[2021-09-25] MEDS: AMLODIPINE 5 MG TABLET PO (12:14)
[2021-09-25] MEDS: FUROSEMIDE 20 MG TABLET PO (12:14)
[2021-09-25] MEDS: POTASSIUM PHOS/SODIUM PHOS 250 MG TABLET PO (12:18)
[2021-09-25 12:55] LABS: Haptoglobin 191 mg/dL (30-200); Transferrin 291 mg/dL (200-360)
[2021-09-25] MEDS: POTASSIUM CHLORIDE 10 MEQ, LIDOCAINE 1 % 1 ML in 0.9 % SODIUM CHLORIDE 100 ml 100 ML 106 MEQ IVPB (13:17)
--- NOTE | 2021-09-25 16:53 | PC.NURSE ---
Discharge: Patient pleasant and cooperative. Up with SBA, walker and gait belt. Needing some assist with toileting. Vitals stable and WNL. No c/o pain or nausea. Patient incont BM this afternoon, no foul odor, appeared green and mixed with urine. Patient discontinued her IV herself, catheter intact. Discharge instructions explained to patient and daughter, questions answered as needed. Call done to [facility] and nurse to nurse given. Patient dicharged from [facility] @ 1635 via wheelchair.
--- NOTE | 2021-09-28 12:06 | P.DS_ITS ---
DS: Providers Provider Time Seen by Provider: 13:00 Date Seen: 09/25/21 Date of admission: 09/24/21 09:09 Primary care physician: Macho Davis MD Admitting Clinician: Geovani Wells MD Consults: 09/24/21 12:03 Consult to Physical Therapy [CONS] Routine Comment: Reason(s) for PT Consult:: Evaluate Ambulation Any Restrictions?:: No Restrictions 09/24/21 12:04 Consult to Occupational Therapy [CONS] Routine Comment: Reason(s) for OT Consult:: Evaluate and Treat Any Restrictions?:: No Restrictions Comment: MOCA please Attending Physician on discharge: Errol Jonas MD Date of Discharge: 09/25/21 DS: Diagnosis Discharge Diagnosis (1) Iron deficiency anemia: Status: Acute (2) Acute hypokalemia: Status: Acute (3) Personal history of pulmonary embolism: Status: Acute Problem details: 2018; has been on eliquis 5 mg bid (4) Essential (primary) hypertension: Status: Acute (5) Emphysema lung: Status: Acute (6) Congestive heart failure: Status: Acute (7) Osteoporosis: Status: Acute DS: Summary Hospital Course Hospital Course: Carlita Morocho is a 80 year old female presenting from clinic for evaluation of anemia and fatigue. The patient has PMhx of PE (on eliquis), CHF, COPD. She endorses fatigue, dizziness, and generalized weakness. She denies chest pain and SOB. Her hgb in the ED was 6.2. Subsequently, after hydrated with IV fluids, hemoglobin dropped to 5.8. She denies melena, hematochezia, hematemesis. She denies fever, increased urinary frequency. She denies abdominal pain. Received a total 2 units of packed red blood cells during the course of hospitalization. Hemoglobin went up to 7.6. Recommended EGD and colonoscopy. Patient agreed to the EGD but declined allowing us to do the colonoscopy. EGD undertaken on date of discharge with no findings to account for her low hemoglobin. Upper gastrointestinal mucosa appeared normal based on EGD findings. Recommended patient have follow up with her primary care physician and consider additional assessment if this is her desire. Recommended that gastrointestinal blood loss sources continue to be sought. Also recommended consideration for hematology consultation. May benefit from bone marrow aspirate and biopsy assessment. Status at Discharge Cognitive/behavioral status at discharge: Alert, oriented to self, place, time, situation. Articulate. Cooperative. Functional status at discharge: independent ambulation Overall status at discharge: patient is back to baseline Time Spent with Patient Time attestation: Total time spent providing and/or coordinating discharge services: Time spent: Greater than 30 minutes Exam Narrative: Exam Narrative: Lungs are clear to auscultation. Heart tones with regular rhythm. Abdomen with active bowel sounds, soft, nontender. Negative CVA tenderness. Extremities without edema. Independent transfer, station, and gait. Denies orthostasis. Skin is warm, dry, intact. Const: Documenting provider has reviewed patient's vital signs: yes Discharge Plan Discharge Disposition: Home, Self-Care Date of Admission: 09/24/21 09:09 Attending Provider on Discharge: Errol Jonas Consulting Providers: Geovani Wells Primary Care Provider: Macho Davis Condition: Improved Anticipated Discharge Date/Time: 09/25/21 16:30 Discharge Medications: Continued acetaminophen 325 mg tablet 325 - 650 mg PO Q4-6H [id number] Rx Instructions: 325-650mg po q4-6 hrs prn amlodipine 5 mg tablet 5 mg PO DAILY 0RF Eliquis 5 mg tablet 5 mg PO BID 0RF digoxin 125 mcg (0.125 mg) tablet 125 mcg PO DAILY 0RF furosemide 20 mg tablet 20 mg PO DAILY 0RF gabapentin 300 mg capsule 300 mg PO BID 0RF potassium chloride 20 mEq tablet,ER particles/crystals 20 meq PO DAILY 0RF simvastatin 20 mg tablet 20 mg PO HS 0RF oxybutynin chloride 15 mg tablet extended release 24hr 15 mg PO DAILY 0RF Discontinued naproxen sodium [Aleve] 220 mg capsule 220 mg PO BID [id number] Discharge Orders: Discharge Order (Routine); Ordered 09/25/21 Ordered By: Errol Jonas Patient Education: Iron Rich Diet (GEN), Iron Deficiency Anemia (GEN), Anemia (GEN) Activity Level: Activity as Tolerated Discharge Diet: Regular Follow Up Appointments: Macho Davis MD [Primary Care Provider] - (Follow-up in 3-7 days, with pre- visit CBC) Forms: [facility] Info Instructions
[2021-09-29 12:02] LABS: Slide Review Reflex No
== END 2021-09-25 16:35 | disposition home or self-care (01) | DRG 812 ==
LOC: ED 20:30 → MEDSURG 21:58
PROVIDERS: Family Medicine; Admitting Provider Hospitalist; Emergency Provider Student in an Organized Health Care Education/Training Program; PCP Family Medicine; Visit Provider Hospitalist
DX: D50.9 Iron deficiency anemia, unspecified (principal); N39.0 Urinary tract infection, site not specified; E87.6 Hypokalemia; I11.0 Hypertensive heart disease with heart failure; I50.9 Heart failure, unspecified; B96.20 Unspecified Escherichia coli [E. coli] as the cause of diseases classified elsewhere; Z86.711 Personal history of pulmonary embolism; Z79.01 Long term (current) use of anticoagulants; M81.0 Age-related osteoporosis without current pathological fracture; F10.21 Alcohol dependence, in remission; J43.9 Emphysema, unspecified; I08.1 Rheumatic disorders of both mitral and tricuspid valves; G62.9 Polyneuropathy, unspecified; I45.19 Other right bundle-branch block; I44.4 Left anterior fascicular block; F32.9 Major depressive disorder, single episode, unspecified; E78.5 Hyperlipidemia, unspecified
CPT/HCPCS: 00731; 36415; 36430; 43239; 80048; 80053; 80076; 81001; 81003; 81015; 82728; 82803; 82977; 83010; 83540; 83550; 83615; 83690; 83735; 83880; 84443; 84466; 84484; 85018; 85025; 85045; 85610; 86140; 86850; 86900; 86901; 86922; 87086; 87186; 87635; 88305; 88342; 93005; 93306; 94761; 97116; 97161; 97165; 97530; 97535; 99100; 99283; 99284; G0378; A9270; C9113; J0696; J2704; J3480; J7030; P9016

== ENCOUNTER 2021-09-29 13:55 | Outpatient (REF) | payer MEDICARE, OTHER, SELFPAY ==
[2021-09-29 14:51] LABS: Hemoglobin* 8.1 gm/dL (12.0-16.0)
== END 2021-09-29 13:56 | disposition home or self-care (01) ==
LOC: NPINS 13:55
PROVIDERS: PCP Family Medicine; Visit Provider Family Medicine
DX: D50.9 Iron deficiency anemia, unspecified (principal)
CPT/HCPCS: 85018

== ENCOUNTER 2021-10-06 17:07 | Outpatient (REF) | payer MEDICARE, OTHER, SELFPAY ==
[2021-10-06 18:11] LABS: Hemoglobin* 8.2 gm/dL (12.0-16.0)
== END 2021-10-06 17:08 | disposition home or self-care (01) ==
LOC: LAB 17:07
PROVIDERS: PCP Family Medicine; Visit Provider Family Medicine
DX: D64.9 Anemia, unspecified (principal)
CPT/HCPCS: 36415; 85018

== ENCOUNTER 2021-10-20 09:51 | Outpatient (REF) | payer MEDICARE, OTHER, SELFPAY ==
[2021-10-20 10:25] LABS: Hemoglobin* 8.5 gm/dL (12.0-16.0)
== END 2021-10-20 09:52 | disposition home or self-care (01) ==
LOC: NPINS 09:51
PROVIDERS: PCP Family Medicine; Visit Provider Nurse Practitioner Gerontology
DX: D64.9 Anemia, unspecified (principal)
CPT/HCPCS: 85018

== ENCOUNTER 2021-11-03 09:49 | Outpatient (REF) | payer MEDICARE, OTHER, SELFPAY ==
[2021-11-03 10:18] LABS: Hemoglobin* 8.8 gm/dL (12.0-16.0)
== END 2021-11-03 09:50 | disposition home or self-care (01) ==
LOC: NPINS 09:49
PROVIDERS: PCP Family Medicine; Visit Provider Family Medicine
DX: D64.9 Anemia, unspecified (principal)
CPT/HCPCS: 85018

== ENCOUNTER 2021-11-24 16:12 | Outpatient (REF) | payer MEDICARE, OTHER, SELFPAY ==
[2021-11-24 17:25] LABS: Hemoglobin* 8.9 gm/dL (12.0-16.0)
== END 2021-11-24 16:13 | disposition home or self-care (01) ==
LOC: NPINS 16:12
PROVIDERS: PCP Family Medicine; Visit Provider Family Medicine
DX: D64.9 Anemia, unspecified (principal)
CPT/HCPCS: 85018

== ENCOUNTER 2022-03-17 09:10 | Outpatient (REF) | payer BC, OTHER, SELFPAY ==
[2022-03-17 10:44] LABS: Basophils Absolute Auto 0.03 K/uL (0.00-0.30); Basophils Percent Auto 0.5 % (0.0-3.0); Eosinophils Absolute Auto 0.14 K/uL (0.00-0.50); Eosinophils Percent Auto 2.2 % (0.0-7.0); Hematocrit 34.8 % (33.0-51.0); Hemoglobin* 9.5 gm/dL (12.0-16.0); Lymphocytes Absolute Auto 2.03 K/uL (0.90-2.90); Lymphocytes Percent Auto 31.7 % (20-44); Mean Corpuscular HGB Conc 27 gm/dL (32-36); Mean Corpuscular Hemoglobin 19 pg (26-34); Mean Corpuscular Volume 70 fL (80-100); Neutrophils Absolute Auto 3.75 K/uL (1.7-7.0); Neutrophils Percent Auto 58.6 % (42.0-72.0); Platelet Count* 339 K/uL (140-440); RDW Coefficient of Variation % 19.1 % (11.5-15.5); Red Blood Count 4.94 m/uL (4.00-5.20)
[2022-03-17 10:46] LABS: Slide Review Reflex Yes
[2022-03-17 10:55] LABS: Chloride* 104 mmol/L (96-114); Potassium* 4.5 mmol/L (3.6-5.1); Sodium* 138 mmol/L (135-149)
[2022-03-17 10:58] LABS: Blood Urea Nitrogen* 18 mg/dL (7-30); Carbon Dioxide* 26 mmol/L (20-32); Creatinine* 0.8 mg/dL (0.5-1.5); Estimated Glomerular Filt Rate 75 ml/min; Glucose* 127 mg/dL (60-115)
[2022-03-17 11:38] LABS: Slide Review Acceptable Review (Acceptable)
== END 2022-03-17 09:11 | disposition home or self-care (01) ==
LOC: NPINS 09:10
PROVIDERS: PCP Family Medicine; Visit Provider Family Medicine
DX: I50.9 Heart failure, unspecified (principal); D64.9 Anemia, unspecified
CPT/HCPCS: 80048; 85025

== ENCOUNTER 2022-03-18 13:17 | Outpatient (RCR) | payer BC, SELFPAY ==
[2022-03-18 13:58] VITALS: BP 129/71; PULSE 94; RESP 18; TEMP 36.7; O2SAT 94
[2022-03-18] MEDS: DENOSUMAB 60 MG/ML SYRINGE SUBCUT (14:31)
== END 2022-09-14 23:59 | disposition home or self-care (01) ==
LOC: CCIC 13:17
PROVIDERS: PCP Family Medicine; Referring Provider Family Medicine; Visit Provider Clinical Nurse Specialist
DX: M81.0 Age-related osteoporosis without current pathological fracture (principal)
CPT/HCPCS: 96372; J0897

== ENCOUNTER 2022-09-10 16:22 | Outpatient (REF) | payer BC, SELFPAY ==
[2022-09-10 16:55] LABS: Appearance Urine Cloudy (Clear); Bilirubin Urine Negative (Negative); Blood Urine Negative (Negative); Color Urine Yellow (Yellow); Glucose Urine Negative (Negative); Ketones Urine Trace (Negative); Leukocyte Esterase Urine Trace (Negative); Nitrite Urine Positive (Negative); Protein Urine Negative (Negative); Specific Gravity Urine 1.015 (1.000-1.030); Urobilinogen Urine 0.2 (0.2-1.0); pH Urine 5.5 (5.0-8.5)
[2022-09-10 17:29] LABS: Bacteria Urine Many; RBC Urine 0-2 (0-2)
== END 2022-09-10 16:23 | disposition home or self-care (01) ==
LOC: NPINS 16:22
PROVIDERS: PCP Family Medicine; Visit Provider Nurse Practitioner Gerontology
DX: R35.0 Frequency of micturition (principal)
CPT/HCPCS: 81001; 87086; 87186

== ENCOUNTER 2022-09-20 18:39 | Outpatient (REF) | payer BC, SELFPAY ==
[2022-09-20 21:18] LABS: Chloride* 100 mmol/L (96-114)
[2022-09-20 21:19] LABS: Potassium* 4.8 mmol/L (3.6-5.1); Sodium* 138 mmol/L (135-149)
[2022-09-20 21:21] LABS: Carbon Dioxide* 27 mmol/L (20-32); Estimated Glomerular Filt Rate 57 ml/min
[2022-09-20 21:22] LABS: Blood Urea Nitrogen* 18 mg/dL (7-30); Glucose* 103 mg/dL (60-115)
== END 2022-09-20 18:40 | disposition home or self-care (01) ==
LOC: NPINS 18:39
PROVIDERS: PCP Family Medicine; Visit Provider Family Medicine
DX: I50.9 Heart failure, unspecified (principal)
CPT/HCPCS: 80048

== ENCOUNTER 2022-09-22 12:38 | Outpatient (CLI) | payer BC, SELFPAY ==
--- NOTE | 2022-09-22 13:00 | CRLHL7_ITS ---
For Patients: As a result of the Century Cures Act, medical imaging exams and procedure reports are released immediately into your electronic medical record. You may view this report before your referring provider. If you have questions, please contact your health care provider. Indication: Pulmonary nodule monitoring and constipation Technique: Noncontrast CT chest, abdomen and pelvis. Please note that all CT scans at this facility use dose modulation, iterative reconstruction, and/or weight-based dosing when appropriate to reduce radiation dose to as low as reasonably achievable. Comparison: CT chest 09/17/2021 Findings: In the chest, there are a few scattered subcentimeter mediastinal lymph nodes, as before. Atherosclerotic changes noted including calcifications involving the coronary arteries. Calcified left mediastinal lymph nodes are similar. No pericardial effusion. No enlarged axillary lymph nodes. Calcified granuloma within the lingula is unchanged. Chronic bronchiectasis within the right lower lobe again noted. Scarring within the anterior lingula hand within the right middle lobe. No infiltrate or edema. No effusion or pneumothorax. Emphysematous changes. Stable 3 millimeter nodule within the left lower lobe, . No new nodules. Multilevel degenerative changes. In the abdomen, the noncontrast enhanced liver appears normal. The gallbladder is absent. No biliary obstruction. Unremarkable pancreas. Calcified splenic granulomas. Adrenal glands normal. No hydronephrosis or renal stone. Atherosclerotic disease. No hiatal hernia. No retroperitoneal adenopathy. A few scattered subcentimeter mesenteric lymph nodes are present. In the pelvis, the bladder appears normal. No pelvic mass. The uterus is absent. No bowel obstruction or free air. No free fluid or abscess. Chronic wedging of T12 and L1. No pelvic or inguinal adenopathy. Impression: Stable 3 millimeter nodule within the left lower lobe. No further follow-up indicated. Sequela of granulomatous disease in the chest and upper abdomen. Stool is present throughout the colon without mechanical bowel obstruction or inflammation. Status post cholecystectomy without biliary obstruction. No enlarged lymph nodes within the chest, abdomen or pelvis. Please note that all CT scans at this facility use dose modulation, iterative reconstruction, and/or weight-based dosing when appropriate to reduce radiation dose to as low as reasonably achievable. Dictated by Abhijeet Rodriguez MD @ 09/23/2022 12:13:54 PM (Electronically Signed)
--- NOTE | 2022-09-22 13:30 | CRLHL7_ITS ---
For Patients: As a result of the Century Cures Act, medical imaging exams and procedure reports are released immediately into your electronic medical record. You may view this report before your referring provider. If you have questions, please contact your health care provider. INDICATION: Richmond syndrome. TECHNIQUE: CT of the neck without contrast agent. Coronal and sagittal reconstructions are included. COMPARISON: Neck CT from 08/21/2020 FINDINGS: Elongated styloid process on the left measuring up to 5 centimeters which protrudes into the parapharyngeal region. or fractured right-sided styloid process with distal fragment protruding into the right parapharyngeal space. There is no mass or lymphadenopathy within the suprahyoid or infrahyoid neck. The oral cavity, nasopharyngeal, oropharyngeal and hypopharyngeal spaces are normal. The supraglottic, glottic and infraglottic larynx are normal. The airway including the trachea is normal and is patent. The parotid glands, submandibular and sublingual glands are normal in appearance. The thyroid gland is normal in appearance. Vascular calcifications carotid siphons. No suspicious lytic or blastic osseous lesions. Postsurgical changes of laminectomies at C3 through C6. Advanced disc degeneration at C3-4, C4-5, C5-6 and C6-7. At C3-4, grade 1 retrolisthesis. Multilevel uncovertebral/facet arthrosis with high-grade neural foraminal stenosis at C3-4 on the left, C4-5 bilaterally, C5-6 on the right, and C6-7 on the left. No periapical dental disease. Visualized paranasal sinuses and mastoid air cells are clear. Visualized orbital and intracranial contents are normal. Supraclavicular regions, mediastinum and soft tissues of the imaged chest wall are normal. No focal lung lesion. IMPRESSION: 1. Elongated bilateral styloid processes with separation or chronically fractured right-sided styloid process. 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 Stable since prior exam. 2. No mass or lymphadenopathy within the neck. 3. Widespread cervical spondylosis. Multilevel cervical laminectomies. Please note that all CT scans at this facility use dose modulation, iterative reconstruction, and/or weight-based dosing when appropriate to reduce radiation dose to as low as reasonably achievable. Dictated by Wood Bradley MD @ 09/23/2022 7:21:42 PM (Electronically Signed)
== END 2022-09-22 12:39 | disposition home or self-care (01) ==
LOC: CT 12:40
PROVIDERS: PCP Family Medicine; Visit Provider Nurse Practitioner Gerontology
DX: J39.2 Other diseases of pharynx (principal); M47.892 Other spondylosis, cervical region; K59.09 Other constipation
CPT/HCPCS: 70490; 71250; 74176

== ENCOUNTER 2022-09-24 13:07 | Outpatient (RCR) | payer BC, SELFPAY ==
--- NOTE | 2022-09-16 11:23 | URNOTE ---
Request received for authorization for Prolia ([id number]). Prior authorization is approved, per [employer] for Prolia 60mg total of 120 units from 09/16/22 to 09/16/23.
[2022-09-24] MEDS: DENOSUMAB 60 MG/ML SYRINGE SUBCUT (13:43)
== END 2023-03-23 23:59 | disposition home or self-care (01) ==
LOC: CCIC 13:07
PROVIDERS: PCP Family Medicine; Referring Provider Family Medicine; Visit Provider Clinical Nurse Specialist
DX: M81.0 Age-related osteoporosis without current pathological fracture (principal)
CPT/HCPCS: 96372; J0897

== ENCOUNTER 2022-10-19 18:26 | Outpatient (REF) | payer BC, SELFPAY ==
[2022-10-19 18:44] LABS: Basophils Absolute Auto 0.04 K/uL (0.00-0.30); Basophils Percent Auto 0.5 % (0.0-3.0); Eosinophils Absolute Auto 0.15 K/uL (0.00-0.50); Immature Granulocytes Abs Auto 0.02 K/uL (0.00-0.30); Immature Granulocytes Pct Auto 0.3 %; Lymphocytes Percent Auto 31.4 % (20-44); Mean Corpuscular HGB Conc 27 gm/dL (32-36); Mean Corpuscular Hemoglobin 19 pg (26-34); Mean Corpuscular Volume 71 fL (80-100); Monocytes Percent Auto 7.7 % (0.0-11.0); Neutrophils Absolute Auto 4.25 K/uL (1.7-7.0); Neutrophils Percent Auto 58.1 % (42.0-72.0); Platelet Count* 557 K/uL (140-440); RDW Coefficient of Variation % 19.6 % (11.5-15.5); Red Blood Count 4.77 m/uL (4.00-5.20); White Blood Count* 7.32 K/uL (4.50-11.00)
[2022-10-19 18:45] LABS: Slide Review Reflex No
[2022-10-19 18:59] LABS: Chloride* 104 mmol/L (96-114); Potassium* 4.2 mmol/L (3.6-5.1); Sodium* 138 mmol/L (135-149)
[2022-10-19 19:01] LABS: Creatinine* 0.8 mg/dL (0.5-1.5)
[2022-10-19 19:02] LABS: Blood Urea Nitrogen* 16 mg/dL (7-30); Calcium* 9.1 mg/dL (8.4-10.6); Carbon Dioxide* 23 mmol/L (20-32); Estimated Glomerular Filt Rate 74 ml/min; Glucose* 148 mg/dL (60-115)
== END 2022-10-19 18:27 | disposition home or self-care (01) ==
LOC: NPINS 18:26
PROVIDERS: PCP Family Medicine; Visit Provider Family Medicine
DX: I50.9 Heart failure, unspecified (principal); D64.9 Anemia, unspecified
CPT/HCPCS: 80048; 85025

== ENCOUNTER 2023-03-01 12:44 | Outpatient (REF) | payer BC, SELFPAY ==
[2023-03-01 14:00] LABS: Basophils Absolute Auto 0.04 K/uL (0.00-0.30); Basophils Percent Auto 0.8 % (0.0-3.0); Eosinophils Absolute Auto 0.12 K/uL (0.00-0.50); Eosinophils Percent Auto 2.4 % (0.0-7.0); Hematocrit 35.4 % (33.0-51.0); Hemoglobin* 9.5 gm/dL (12.0-16.0); Immature Granulocytes Abs Auto 0.04 K/uL (0.00-0.30); Immature Granulocytes Pct Auto 0.8 %; Lymphocytes Absolute Auto 1.32 K/uL (0.90-2.90); Lymphocytes Percent Auto 26.3 % (20-44); Mean Corpuscular HGB Conc 27 gm/dL (32-36); Mean Corpuscular Hemoglobin 20 pg (26-34); Mean Corpuscular Volume 74 fL (80-100); Monocytes Percent Auto 6.8 % (0.0-11.0); Neutrophils Absolute Auto 3.15 K/uL (1.7-7.0); Neutrophils Percent Auto 62.9 % (42.0-72.0); Platelet Count* 327 K/uL (140-440); RDW Coefficient of Variation % 19.5 % (11.5-15.5); White Blood Count* 5.01 K/uL (4.50-11.00)
[2023-03-01 14:04] LABS: Chloride* 103 mmol/L (96-114); Sodium* 140 mmol/L (135-149)
[2023-03-01 14:05] LABS: Potassium* 4.2 mmol/L (3.6-5.1)
[2023-03-01 14:07] LABS: Creatinine* 0.7 mg/dL (0.5-1.5); Estimated Glomerular Filt Rate 87 ml/min
[2023-03-01 14:08] LABS: Anion Gap 13 mEq/L (7-15); Blood Urea Nitrogen* 19 mg/dL (7-30); Calcium* 8.8 mg/dL (8.4-10.6); Carbon Dioxide* 24 mmol/L (20-32); Glucose* 119 mg/dL (60-115)
[2023-03-01 14:11] LABS: Slide Review Reflex No
== END 2023-03-01 12:45 | disposition home or self-care (01) ==
LOC: NPINS 12:44
PROVIDERS: PCP Family Medicine; Visit Provider Family Medicine
DX: I50.9 Heart failure, unspecified (principal); D64.9 Anemia, unspecified; R53.83 Other fatigue
CPT/HCPCS: 80048; 85025

== ENCOUNTER 2023-03-28 08:39 | Outpatient (RCR) | payer BC, SELFPAY ==
[2023-03-28 08:55] VITALS: BP 128/60; PULSE 54; RESP 16; TEMP 35.8; O2SAT 95
[2023-03-28] MEDS: DENOSUMAB 60 MG/ML SYRINGE SUBCUT (09:02)
== END 2023-09-24 23:59 | disposition home or self-care (01) ==
LOC: CCIC 08:39
PROVIDERS: PCP Family Medicine; Referring Provider Family Medicine; Visit Provider Clinical Nurse Specialist
DX: M81.0 Age-related osteoporosis without current pathological fracture (principal)
CPT/HCPCS: 96372; J0897

== ENCOUNTER 2023-04-19 10:23 | Outpatient (REF) | payer BC, SELFPAY ==
[2023-04-19 11:53] LABS: Free T4 Free Thyroxine* 0.85 ng/dL (0.70-1.85)
== END 2023-04-19 10:24 | disposition home or self-care (01) ==
LOC: NPINS 10:23
PROVIDERS: PCP Family Medicine; Visit Provider Nurse Practitioner Gerontology
DX: R53.83 Other fatigue (principal)
CPT/HCPCS: 84439; 84443; 84479

== ENCOUNTER 2023-10-18 09:55 | Outpatient (REF) | payer BC, SELFPAY ==
[2023-10-18 10:14] LABS: Basophils Absolute Auto 0.02 K/uL (0.00-0.30); Basophils Percent Auto 0.3 % (0.0-3.0); Eosinophils Absolute Auto 0.27 K/uL (0.00-0.50); Eosinophils Percent Auto 4.2 % (0.0-7.0); Hematocrit 38.1 % (33.0-51.0); Hemoglobin* 10.7 gm/dL (12.0-16.0); Immature Granulocytes Abs Auto 0.01 K/uL (0.00-0.30); Immature Granulocytes Pct Auto 0.2 %; Lymphocytes Absolute Auto 1.84 K/uL (0.90-2.90); Lymphocytes Percent Auto 28.8 % (20-44); Mean Corpuscular HGB Conc 28 gm/dL (32-36); Mean Corpuscular Hemoglobin 22 pg (26-34); Mean Corpuscular Volume 77 fL (80-100); Monocytes Percent Auto 6.7 % (0.0-11.0); Neutrophils Absolute Auto 3.83 K/uL (1.7-7.0); Neutrophils Percent Auto 59.8 % (42.0-72.0); Platelet Count* 298 K/uL (140-440); RDW Coefficient of Variation % 16.8 % (11.5-15.5); Red Blood Count 4.92 m/uL (4.00-5.20)
[2023-10-18 10:20] LABS: Slide Review Reflex No
[2023-10-18 10:34] LABS: Chloride* 105 mmol/L (96-114); Sodium* 140 mmol/L (135-149)
[2023-10-18 10:37] LABS: Anion Gap 8 mEq/L (7-15); Blood Urea Nitrogen* 19 mg/dL (7-30); Carbon Dioxide* 27 mmol/L (20-32); Creatinine* 0.7 mg/dL (0.5-1.5); Estimated Glomerular Filt Rate 87 ml/min; Glucose* 121 mg/dL (60-115)
== END 2023-10-18 09:56 | disposition home or self-care (01) ==
LOC: NPINS 09:55
PROVIDERS: PCP Family Medicine; Visit Provider Family Medicine
DX: D64.9 Anemia, unspecified (principal)
CPT/HCPCS: 80048; 85025

== ENCOUNTER 2023-10-20 09:36 | Outpatient (RCR) | payer BC, SELFPAY ==
--- NOTE | 2023-10-14 13:55 | URNOTE ---
P[employer]ia([id number])has been approved 10/14/2023-10/13/2024. Ref #[id number]
[2023-10-20 09:47] VITALS: BP 111/63; PULSE 57; RESP 16; TEMP 36.4; O2SAT 96
[2023-10-20] MEDS: DENOSUMAB 60 MG/ML SYRINGE SUBCUT (10:14)
== END 2024-04-17 23:59 | disposition home or self-care (01) ==
LOC: CCIC 09:36
PROVIDERS: PCP Family Medicine; Referring Provider Family Medicine; Visit Provider Clinical Nurse Specialist
DX: M81.0 Age-related osteoporosis without current pathological fracture (principal)
CPT/HCPCS: 96372; J0897

== ENCOUNTER 2024-04-10 11:25 | Outpatient (REF) | payer BC, SELFPAY ==
[2024-04-10 11:47] LABS: Basophils Percent Auto 0.5 % (0.0-3.0); Hematocrit 38.7 % (33.0-51.0); Hemoglobin* 11.5 gm/dL (12.0-16.0); Mean Corpuscular HGB Conc 30 gm/dL (32-36); Mean Corpuscular Hemoglobin 24 pg (26-34); Mean Corpuscular Volume 81 fL (80-100); Neutrophils Percent Auto 54.5 % (42.0-72.0); Platelet Count* 242 K/uL (140-440); RDW Coefficient of Variation % 16.5 % (11.5-15.5); Red Blood Count 4.78 m/uL (4.00-5.20)
[2024-04-10 11:48] LABS: Slide Review Reflex No
[2024-04-10 12:10] LABS: Chloride* 102 mmol/L (96-114); Potassium* 4.1 mmol/L (3.6-5.1); Sodium* 138 mmol/L (135-149)
[2024-04-10 12:12] LABS: Creatinine* 0.7 mg/dL (0.5-1.5); Estimated Glomerular Filt Rate 87 ml/min
[2024-04-10 12:13] LABS: Anion Gap 6 mEq/L (7-15); Blood Urea Nitrogen* 25 mg/dL (7-30); Calcium* 8.6 mg/dL (8.4-10.6); Carbon Dioxide* 30 mmol/L (20-32); Glucose* 109 mg/dL (60-115)
== END 2024-04-10 11:26 | disposition home or self-care (01) ==
LOC: NPINS 11:25
PROVIDERS: PCP Family Medicine; Visit Provider Nurse Practitioner Gerontology
DX: D64.9 Anemia, unspecified (principal); M81.0 Age-related osteoporosis without current pathological fracture
CPT/HCPCS: 80048; 85025

== ENCOUNTER 2024-04-26 09:44 | Outpatient (RCR) | payer BC, SELFPAY ==
[2024-04-26 09:54] VITALS: BP 121/57; PULSE 53; RESP 15; TEMP 36.7; O2SAT 95
[2024-04-26] MEDS: DENOSUMAB 60 MG/ML SYRINGE SUBCUT (10:20)
== END 2024-10-23 23:59 | disposition home or self-care (01) ==
LOC: CCIC 09:44
PROVIDERS: PCP Family Medicine; Referring Provider Family Medicine; Visit Provider Clinical Nurse Specialist
DX: M81.0 Age-related osteoporosis without current pathological fracture (principal)
CPT/HCPCS: 96372; J0897

== ENCOUNTER 2024-07-31 11:14 | Outpatient (CLI) | payer BC, SELFPAY ==
[2024-07-31 13:19] LABS: Appearance Urine Clear (Clear); Bilirubin Urine Negative (Negative); Blood Urine Negative (Negative); Color Urine Yellow (Yellow); Glucose Urine Negative (Negative); Ketones Urine Negative (Negative); Leukocyte Esterase Urine 1+ (Negative); Nitrite Urine Negative (Negative); Protein Urine Negative (Negative)
[2024-07-31 13:33] LABS: Bacteria Urine Many; RBC Urine 0-2 (0-2)
== END 2024-07-31 11:15 | disposition home or self-care (01) ==
LOC: NPINS 11:16
PROVIDERS: PCP Family Medicine; Referring Provider Nurse Practitioner Gerontology; Visit Provider Family Medicine
DX: N39.0 Urinary tract infection, site not specified (principal)
CPT/HCPCS: 81001; 81003; 87086

== ENCOUNTER 2024-11-06 11:24 | Outpatient (REF) | payer BC, SELFPAY ==
[2024-11-06 15:44] LABS: Hematocrit* 41.2 % (33.0-51.0); Hemoglobin* 12.5 gm/dL (12.0-16.0); Immature Granulocytes Abs Auto 0.00 K/uL (0.00-0.30); Immature Granulocytes Pct Auto 0.0 %; Lymphocytes Absolute Auto 1.64 K/uL (0.90-2.90); Mean Corpuscular HGB Conc 30 gm/dL (32-36); Mean Corpuscular Hemoglobin 26 pg (26-34); Mean Corpuscular Volume 85 fL (80-100); RDW Coefficient of Variation % 14.6 % (11.5-15.5); Red Blood Count* 4.87 m/uL (4.00-5.20); White Blood Count* 4.89 K/uL (4.50-11.00)
[2024-11-06 15:47] LABS: Slide Review Reflex No
[2024-11-06 16:15] LABS: Albumin* 3.7 g/dL (3.3-5.0); Chloride* 101 mmol/L (96-114); Potassium* 4.4 mmol/L (3.6-5.1); Sodium* 137 mmol/L (135-149)
[2024-11-06 16:18] LABS: Alanine Aminotransferase* 9 U/L (4-35); Alkaline Phosphatase* 110 U/L (40-150); Anion Gap 6 mEq/L (7-15); Aspartate Amino Transferase* 17 U/L (12-35); Bilirubin Direct* 0.3 mg/dL (0.0-0.5); Bilirubin Total* 0.5 mg/dL (0.1-1.5); Blood Urea Nitrogen* 19 mg/dL (7-30); Carbon Dioxide* 30 mmol/L (20-32); Creatinine* 0.6 mg/dL (0.5-1.5); Estimated Glomerular Filt Rate 90 ml/min; Total Protein* 5.8 g/dL (6.0-8.3)
[2024-11-06 16:19] LABS: Calcium* 9.1 mg/dL (8.4-10.6); Glucose* 104 mg/dL (60-115)
--- OUTSIDE RECORDS SUMMARY | 2024-11-07 00:18 | XMS_ITS | Clinical Summary ---
Author Organization [facility] Address [facility] [place] [address] Care Team Providers Care Gem Setter Name Role Phone Lucinda Colon NP Primary Care Provider [phone] Yasir Colon MD Unavailable [phone] Allergies No known active allergies Medications PAIN RELIEVER 325 mg tablet Take 650 mg by mouth every 6 hours if needed. 99 9 Active denosumab (PROLIA) 60 mg/mL injection 60 mg SQ every 6 months 1 mL 1 Active calcium carbonate (CALTRATE) 600 mg calcium (1,500 mg) tabletIndications:O steoporosis, unspecified osteoporosis type, unspecified pathological fracture presence Take 1 tablet by mouth once daily with a meal. to help keep bones strong. 30 tablet 11 9 Active cholecalciferol (VITAMIN D3) 2,000 unit capsuleIndications: Osteoporosis, unspecified osteoporosis type, unspecified pathological fracture presence Take 1 capsule by mouth once daily. For vitamin D supplement. 30 capsule 3 9 Active gabapentin (NEURONTIN) 300 mg capsuleIndications: Neuropathy TAKE 1 CAPSULE BY MOUTH AT BEDTIME 90 capsule 2 0 Active ELIQUIS 5 mg tabletIndications:O ther pulmonary embolism without acute cor pulmonale, unspecified chronicity (HC) Take 1 tablet by mouth 2 times daily. 60 tablet 6 0 Active amLODIPine (NORVASC) 5 mg tabletIndications:H ypertension, unspecified type TAKE 1 TABLET BY MOUTH ONCE DAILY 90 tablet 0 Active furosemide (LASIX) 20 mg tabletIndications:C ongestive heart failure, unspecified HF chronicity, unspecified heart failure type (HC) TAKE 1 TABLET BY MOUTH EVERY MORNING 90 tablet 0 Active simvastatin (ZOCOR) 20 mg tabletIndications:H yperlipidemia, unspecified hyperlipidemia type TAKE 1 TABLET BY MOUTH ONCE DAILY WITH EVENING MEAL 90 tablet 0 Active potassium chloride (KLOR-CON M20) 20 mEq Extended-Release tabletIndications:C ongestive heart failure, unspecified HF chronicity, unspecified heart failure type (HC) TAKE 1 TABLET BY MOUTH ONCE DAILY WITH A MEAL 90 tablet 0 Active oxybutynin XL (DITROPAN XL) 10 mg CR tabletIndications:U rinary incontinence, unspecified type Take 1 tablet by mouth once daily. 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 Came back to see if she wanted vaccine. Questions answered. Patient declined.) Family History Medical History Relation Name Comments Cancer-breast No Family History Social History Tobacco Use Types Packs/Day Years Used Date Smoking Tobacco: Former Smokeless Tobacco: Never Tobacco Cessation:Counseling Given: Yes Alcohol Use Standard Drinks/Week Comments Not Currently 0 (1 standard drink = 0.6 oz pur e alcohol) PHQ-2 Answer Date Recorded PHQ-2 TOTAL SCORE 0 09/01/2020 Social Connections Answer Date Recorded Frequency of Communication with Friends and Fami ly Not on file 03/21/2021 Financial Resource Strain Answer Date R ecorded Difficulty of Paying Living Expenses Not on file 03/21/2021 Difficulty of Paying Living Expenses Not on file 03/21/2021 Comments No Sex and Gender Information Value Date Recorded Sex Assigned at Not on file 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[employer] Gender Identity Not on file Sexual Orientation Not on file Obstetrics History Last Filed Vital Signs Vital Sign Reading Time Taken Comments Blood Pressure 117/64 09/15/2020 10:16 AM CDT Pulse 60 09/15/2020 10:16 AM CDT Temperature 36.7 C (98.1 F) 09/08/2020 9:52 AM CDT Respiratory Rate 16 09/04/2018 11:57 AM CDT Oxygen Saturation 97% 09/15/2020 10:16 AM CDT Inhaled Oxygen Concentration - - Weight 89.1 kg (196 lb 6.4 oz) 09/08/2020 9:52 A M CDT Height 170.2 cm (5' 7) 09/08/2020 9:52 AM CDT Body Mass Index 30.76 09/08/2020 9:52 AM CDT Plan of Treatment Health Maintenance Due Date Last Done Comments Tetanus booster 1953 Pneumococcal series for age 50+ (1 of 2 - PCV) 1961 Zoster (shingles) series for age 50+ (1 of 2) 1992 DEXA/DXA scan for age 65+ 09/26/2007 Medicare Wellness for age 65+ 09/26/2007 RSV vaccine for adults or (1 - 1-dose 75+ series) 2017 Depression screening for age 12+ 09/01/2021 09/01/2020 BMI (ht and wt on same day) for age 18+ 09/08/2021 09/08/2020, 04/02/2019 COVID-19 vaccine series ( season) 2023 09/14/2021, 02/19/2021, 05/01/2020, Additional history exists Influenza Vaccine (#1) 2024 01/05/2019 Hepatitis B series for 19+ Aged Out N o longer eligible based on patient's age to complete this topic Insurance MEDICARE [place] ONLY Advance Directives Documents on File Type Date Recorded 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
== END 2024-11-06 11:25 | disposition home or self-care (01) ==
LOC: NPINS 11:24
PROVIDERS: PCP Family Medicine; Visit Provider Nurse Practitioner Gerontology
DX: I50.30 Unspecified diastolic (congestive) heart failure (principal)
CPT/HCPCS: 80048; 80076; 85025